=== PATIENT | female | born 1970 | race Caucasian/White ===

== ENCOUNTER 2016-06-22 00:13 | Inpatient (IN) | payer OTHER ==
[~2016-06-22] VITALS: Ht 160 cm; Wt 62.1 kg
[2016-06-22 00:40] LABS: HEMATOCRIT 41.9 % (37-47); MEAN CELL VOLUME 92.1 fL (80-100); MEAN CORPUSCULAR HEMOGLOBIN 32.3 pg (25-34); MEAN CORPUSCULAR HGB CONC 35.1 g/dl (32-36); MEAN PLATELET VOLUME 9.4 fL (7.4-10.4); PLATELET COUNT 234 K/uL (130-400); RED BLOOD COUNT 4.55 M/uL (4.2-5.4); WHITE BLOOD COUNT 8.03 K/uL (4.8-10.8)
--- NOTE | 2016-06-22 00:41 | EMERGENCY ROOM VISIT NOTE ---
History Report prepared by Bari: Nasim Cabezas Under the Supervision of: Dr. Elvira Hinton D.O. First contact with patient: 00:20 Chief Complaint: OVERDOSE (INTENTIONAL) Stated Complaint: OVERDOSED ON MEDICATION History of Present Illness The patient is a 45 year old female who presents to the Emergency Room due to an intentional overdose that occurred a couple of hours ago. This history is presented partially by the patient, but she is showing moderate signs of overdose. The rest of the information is presented by the patient's friend. This HPI is limited due to overdose. The patient was at her home today when she decided to take an unknown amount of her medication, Hydroxyzine. She was prescribed this to help her sleep. She then drank six beers. She called her friend to tell her what she did, which the friend responded to by calling EMS. Last week, the patient's son committed suicide by a gun shot wound to the head. She claims that she wants to be with him. She denies any abdominal pain. She has a history of depression and a hysterectomy. She does not have any other known medical issues. Source of History: friend, EMS History Limited By: sedation Onset: [employer] Position: other (global) Symptom Intensity: unknown Quality: other (overdose) Timing: other (persistent) Associated Symptoms: No abdominal pain Review of Systems ROS limited due to overdose. Past Medical & Surgical Medical Problems: (1) Anticholinergic drug overdose (2) Antihistamines overdose (3) Depression (4) Suicidal ideation Family History Unknown due to overdose. Social History Smoking Status: Former Smoker Alcohol Use: occasionally Marital Status: Housing Status: lives with family Occupation Status: unemployed Current/Historical Medications Scheduled Docusate Sodium (Colace), 1 CAP PO BID Escitalopram (Lexapro), 10 MG PO DAILY Hydroxyzine Hcl (Atarax), 50 MG PO HS Multivitamin (Multivitamin), 1 TAB PO DAILY Nicotine (Nicotine), 1 PATCH TOP DAILY Polyethylene Glycol 3350 (Miralax), 17 GM PO DAILY Valacyclovir (Valtrex), 500 MG PO DAILY Scheduled PRN Lorazepam (Ativan), 0.5 MG PO Q8 PRN for Anxiety Allergies Coded Allergies: No Known Allergies (Unverified , 06/22/16) Physical Exam Vital Signs Date Time Temp Pulse Resp B/P Pulse Ox O2 Delivery O2 Flow Rate FiO2 06/22/16 00:45 100 17 133/83 100 Room Air 06/22/16 00:33 96 06/22/16 00:15 36.9 90 16 108/74 97 Room Air Physical Exam HEENT: Head - normocephalic and atraumatic Pupils are equal, round, 3 mms, and sluggishly reactive to light. Extraocular eye muscles are intact, and sclera are anicteric. Nose - moist nasal mucosa without discharge. Mouth - moist buccal mucosa. Oropharynx is nonerythematous and there is no tonsillar exudate or edema noted. Neck: Supple; no JVD, nuchal rigidity, cervical lymphadenopathy. Heart: Tachycardic with normal rhythm. There is a normal S1 and S2 with no murmurs, clicks, or gallops appreciated. Lungs: Clear to auscultation bilaterally with no wheezes, rales, or rhonchi. Abdomen: Soft, completely nontender, nondistended, with good bowel sounds. There are no palpable pulsatile masses or hepatosplenomegaly. There is no guarding, rigidity, or rebound noted. Extremities: No evidence of cyanosis, clubbing, or edema. There are easily palpable peripheral pulses. Skin: warm and dry with good turgor and no rashes. Neuro: The patient is quite somnolent on exam. She could only occasionally answer questions. Medical Decision & Procedures Laboratory Results 06/22/16 00:27 06/22/16 00:27 Test 06/22/16 00:27 06/22/16 00:30 06/22/16 01:55 Red Blood Count 4.55 M/uL (4.2-5.4) Mean Corpuscular Volume 92.1 fL (80-100) Mean Corpuscular Hemoglobin 32.3 pg (25-34) Mean Corpuscular Hemoglobin Concent 35.1 g/dl (32-36) RDW Standard Deviation 41.8 fL (36.4-46.3) RDW Coefficient of Variation 12.4 % (11.5-14.5) Mean Platelet Volume 9.4 fL (7.4-10.4) Anion Gap 15.0 mmol/L (3-11) Est Creatinine Clear Calc Drug Dose 79.9 ml/min Estimated GFR () 115.6 Estimated GFR (Non- 99.7 BUN/Creatinine Ratio 9.8 (10-20) Calcium Level 8.7 mg/dl (8.5-10.1) Magnesium Level 2.3 mg/dl (1.8-2.4) Total Bilirubin 0.3 mg/dl (0.2-1) Direct Bilirubin < 0.1 mg/dl (0-0.2) Aspartate Amino Transf (AST/SGOT) 28 U/L (15-37) Alanine Aminotransferase (ALT/SGPT) 52 U/L (12-78) Alkaline Phosphatase 54 U/L (45-117) Total Creatine Kinase 76 U/L (26-192) Creatine Kinase MB 0.9 ng/ml (0.5-3.6) Creatine Kinase MB Ratio 1.2 (0-3.0) Troponin I < 0.015 ng/ml (0-0.045) Total Protein 7.6 gm/dl (6.4-8.2) Albumin 4.3 gm/dl (3.4-5.0) Thyroid Stimulating Hormone (TSH) 1.950 uIu/ml (0.300-4.500) Ethyl Alcohol mg/dL 182.0 mg/dl (0-3) Urine Opiates Screen NEG (NEG) Urine Methadone, Qualitative NEG (NEG) Urine Barbiturates NEG (NEG) Urine Phencyclidine (PCP) Level NEG (NEG) Ur Amphetamine/Methamphetamine NEG (NEG) MDMA (Ecstasy) Screen NEG (NEG) Urine Benzodiazepines Screen NEG (NEG) Urine Cocaine Metabolite NEG (NEG) Urine Marijuana (THC) POS (NEG) Salicylates Level < 1.7 mg/dl (2.8-20) Acetaminophen Level < 2 ug/ml (10-30) Date/Time Source Procedure Growth Status 06/22/16 00:00 Nasal MRSA DNA Surveillance Screen - Final Specimen Negative for MRSA by DNA Probe Complete Laboratory results per my review. ECG Indication: toxicologic Rate (beats per minute): 93 Rhythm: normal sinus Findings: T-wave inversion (Inferior), other (QTC 492) Change: Second ECG showed, Sinus tachycardia with a rate of 101, slightly deeper T-wave inversions inferiorly, QTC remains normal, QRS duration is normal as well. ED Course 0020: Past medical records reviewed. The patient was evaluated in room B12. A complete history and physical exam was performed. The patient was observing the monitor car operator and pulse oximeter. An IV lock was initiated and labs are drones above. 0030: The charge nurse is contacting poison control. The patient had an EKG. 0056: The patient is asleep but easily arousable to verbal stimuli. She is hemodynamically stable. 0107: The patient's friend is currently filling out a 302 form. At this time, the patient is more awake. I asked her how many pills she took, and she said "a lot." I then asked what she thought would happen if she took that many, and she said "I thought I would ." 0145: I reviewed the recommendations from poison control. I repeated the twelve -lead EKG. There is no significant change or lengthening of the Q-T complex or QRS complex. 0148: I went over the results and the recommendations with the friend and the patient. I spoke with Dr. Gonzalez of the [facility]. The patient will be evaluated for further management and care. 0219: The patient is hemodynamically stable. She is not in respiratory distress. Medical Decision The patient is a 45 year old female who presents to the ED with an overdose. Differential diagnosis includes intentional drug overdose, suicide attempt, Laboratory results showed: WBC count normal, stable H&H, glucose 114, normal renal function and TSH, alcohol 182, toxicology screen positive for marijuana, Tylenol and Aspirin levels negative. The patient took an intentional overdose of alcohol and Vistaril in an attempt to kill herself. She has become significantly depressed as a result of her son shooting himself in the head. Most of the history was obtained from the patient's friend who is at the bedside. She does state that the patient drinks quite a bit of alcohol but drank some tonight and also took a moderate amount of Vistaril. The patient was somnolent on presentation. She required medical admission so that she could be cleared before psychiatric evaluation. Consults Time Called: 144 Consulting Physician: Dr. Gonzalez - [facility] Returned Call: 014 He will be evaluating the patient for further management. Impression Primary Impression: Suicide attempt by drug ingestion Critical Care I have personally spent greater than 30 minutes of critical care time in the direct management of this patient. This includes bedside care, interpretation of diagnostic studies, and testing, discussion with consultants, patient, and family members, and other required patient management activities. This 30 minutes is in excess of all separately billable procedures. Scribe Attestation The scribe's documentation has been prepared under my direction and personally reviewed by me in its entirety. I confirm that the note above accurately reflects all work, treatment, procedures, and medical decision making performed by me. Departure Information Dispostion Being Evaluated By Hospitalist Referrals Shannon Gilliam DO (PCP) Patient Instructions My [facility]
[2016-06-22 00:59] LABS: ALT/SGPT 52 U/L (12-78); AST/SGOT 28 U/L (15-37); BLOOD UREA NITROGEN 7 mg/dl (7-18); BUN/CREATININE RATIO 9.8 (10-20); CALCIUM 8.7 mg/dl (8.5-10.1); CARBON DIOXIDE 22 mmol/L (21-32); CHLORIDE 109 mmol/L (98-107); CREATININE 0.72 mg/dl (0.60-1.20); GLUCOSE 114 mg/dl (70-99); POTASSIUM 3.6 mmol/L (3.5-5.1); SODIUM 146 mmol/L (136-145)
[2016-06-22 01:05] LABS: BENZODIAZEPINE, URINE NEG (NEG); COCAINE,URINE NEG (NEG); PHENCYCLIDINE, URINE NEG (NEG)
[2016-06-22 01:10] LABS: ALKALINE PHOSPHATASE 54 U/L (45-117)
[2016-06-22] MEDS ORDERED: POLY335019 PO (01:16)
[2016-06-22] MEDS ORDERED: MULT-506 PO (01:16)
[2016-06-22] MEDS ORDERED: HYDR-3126 PO (01:16)
[2016-06-22] MEDS ORDERED: DOCU-94 PO (01:16)
[2016-06-22] MEDS ORDERED: LORA-741 PO (01:16)
[2016-06-22] MEDS ORDERED: ESCI10TA17 PO (01:16)
[2016-06-22] MEDS ORDERED: VALA500T60 PO (01:17)
[2016-06-22] MEDS ORDERED: NICO14DI9 TOP (01:17)
[2016-06-22 02:18] LABS: CKMB/CK RATIO 1.2 (0-3.0)
[2016-06-22 02:26] LABS: ACETAMINOPHEN < 2 ug/ml (10-30)
[2016-06-22] MEDS ORDERED: ACETAMINOPHEN 325 MG TAB PO PRN (02:45)
[2016-06-22 04:08] LABS: MAGNESIUM 2.3 mg/dl (1.8-2.4)
--- NOTE | 2016-06-22 04:29 | History and Physical ---
History & Physical Date & Time of Service: Jun 22, 2016 at 03:58 Chief Complaint: Overdosed On Medication Primary Care Physician: Shannon Gilliam DO History of Present Illness Source: patient 45 y/o F w/Hx depression. She is grieving the recent of her son who committed suicide by gunshot. She drank 6 beers this evening and then ingested approximately 15 tablets of Hydroxyzine in an apparent attempt to commit suicide. After ingestion she phoned a friend who subsequently alerted EMS. She was somnolent on arrival to the ER but has since improved and is awake and oriented on admission. She denies CP, SOB, BRADLEY, N/V or fevers. Past Medical/Surgical History Medical Problems: (1) Depression Status: Chronic Family History Noncontributory Social History Smoking Status: Former Smoker Marital Status: Occupational Status: unemployed Allergies Coded Allergies: No Known Allergies (Unverified , 06/22/16) Home Medications Scheduled Docusate Sodium (Colace), 1 CAP PO BID Escitalopram (Lexapro), 10 MG PO DAILY Hydroxyzine Hcl (Atarax), 50 MG PO HS Multivitamin (Multivitamin), 1 TAB PO DAILY Nicotine (Nicotine), 1 PATCH TOP DAILY Polyethylene Glycol 3350 (Miralax), 17 GM PO DAILY Valacyclovir (Valtrex), 500 MG PO DAILY Scheduled PRN Lorazepam (Ativan), 0.5 MG PO Q8 PRN for Anxiety Review of Systems Constitutional: No chills, No fever, No sweats Eyes: No worsening of vision ENT: No hearing loss, No nasal symptoms, No unusual epistaxis Respiratory: No cough, No sputum, No wheezing Cardiovascular: No PND, No chest pain, No orthopnea Abdomen: No nausea, No pain, No vomiting Musculoskeletal: No joint pain Genitourinary - Female: No dysuria, No urinary frequency, No urinary urgency Neurologic: No memory loss, No paralysis Psychiatric: + depression symptoms Endocrine: No fatigue Hematologic / Lymphatic: No abnormal bleeding/bruising Integumentary: No rash Physical Exam Vital Signs Date Time Temp Pulse Resp B/P Pulse Ox O2 Delivery O2 Flow Rate FiO2 06/22/16 03:00 106 20 110/64 97 Room Air 06/22/16 00:45 100 17 133/83 100 Room Air 06/22/16 00:33 96 06/22/16 00:15 36.9 90 16 108/74 97 Room Air General Appearance: WD/WN, no apparent distress Head: normocephalic Eyes: normal inspection, PERRL, EOMI ENT: normal ENT inspection, pharynx normal Neck: supple, no JVD Respiratory/Chest: chest non-tender, lungs clear, normal breath sounds, no respiratory distress, no accessory muscle use Cardiovascular: regular rate, rhythm, normal peripheral pulses Abdomen/GI: normal bowel sounds, non tender, soft Back: normal inspection, no CVA tenderness, no muscle spasm, normal range of motion Extremities/Musculoskelatal: normal inspection, no calf tenderness, normal capillary refill, no pedal edema, normal range of motion Neurologic/Psych: tufting machine operator II-XII nml as tested, no motor/sensory deficits, alert, normal mood/affect, normal reflexes, oriented x 3 Skin: normal color, warm/dry, no rash Diagnostics Laboratory Results Results Past 24 Hours Test 06/22/16 00:27 06/22/16 00:30 06/22/16 01:55 Range/Units White Blood Count 8.03 4.8-10.8 K/uL Red Blood Count 4.55 4.2-5.4 M/uL Hemoglobin 14.7 12.0-16.0 g/dL Hematocrit 41.9 37-47 % Mean Corpuscular Volume 92.1 80-100 fL Mean Corpuscular Hemoglobin 32.3 25-34 pg Mean Corpuscular Hemoglobin Concent 35.1 32-36 g/dl RDW Standard Deviation 41.8 36.4-46.3 fL RDW Coefficient of Variation 12.4 11.5-14.5 % Platelet Count 234 130-400 K/uL Mean Platelet Volume 9.4 7.4-10.4 fL Sodium Level 146 136-145 mmol/L Potassium Level 3.6 3.5-5.1 mmol/L Chloride Level 109 98-107 mmol/L Carbon Dioxide Level 22 21-32 mmol/L Anion Gap 15.0 3-11 mmol/L Blood Urea Nitrogen 7 7-18 mg/dl Creatinine 0.72 0.60-1.20 mg/dl Est Creatinine Clear Calc Drug Dose 79.9 ml/min Estimated GFR () 115.6 Estimated GFR (Non- 99.7 BUN/Creatinine Ratio 9.8 10-20 Random Glucose 114 70-99 mg/dl Calcium Level 8.7 8.5-10.1 mg/dl Total Bilirubin 0.3 0.2-1 mg/dl Direct Bilirubin < 0.1 0-0.2 mg/dl Aspartate Amino Transf (AST/SGOT) 28 15-37 U/L Alanine Aminotransferase (ALT/SGPT) 52 12-78 U/L Alkaline Phosphatase 54 45-117 U/L Total Creatine Kinase 76 26-192 U/L Creatine Kinase MB 0.9 0.5-3.6 ng/ml Creatine Kinase MB Ratio 1.2 0-3.0 Troponin I < 0.015 0-0.045 ng/ml Total Protein 7.6 6.4-8.2 gm/dl Albumin 4.3 3.4-5.0 gm/dl Thyroid Stimulating Hormone (TSH) 1.950 0.300-4.500 uIu/ml Ethyl Alcohol mg/dL 182.0 0-3 mg/dl Urine Opiates Screen NEG NEG Urine Methadone, Qualitative NEG NEG Urine Barbiturates NEG NEG Urine Phencyclidine (PCP) Level NEG NEG Ur Amphetamine/Methamphetamine NEG NEG MDMA (Ecstasy) Screen NEG NEG Urine Benzodiazepines Screen NEG NEG Urine Cocaine Metabolite NEG NEG Urine Marijuana (THC) POS NEG Salicylates Level < 1.7 2.8-20 mg/dl Acetaminophen Level < 2 10-30 ug/ml Impression Assessment and Plan 45 y/o F w/Hx depression. She is grieving the recent of her son who committed suicide by gunshot. She drank 6 beers this evening and then ingested approximately 15 tablets of Hydroxyzine in an apparent attempt to commit suicide. After ingestion she phoned a friend who subsequently alerted EMS. She was somnolent on arrival to the ER but has since improved and is awake and oriented on admission. Intentional Hydroxyzine OD - Pt will be monitored on telemetry - one to one observation requested - mental health will be consulted. No specific treatment is recommended regarding Hydroxizine ingestion. There is risk of QT prolongation and resulting Torsades so we will obtain serial EKGs and trend a BMP an Mg. We will avoid any prolonging agents and have held the majority of her meds for at least 24 hours. Lovenox prophylaxis - full code Total time for this admit including review of records, labs, EKG - discussion with pt and ER attending - 35 min Level of Care Telemetry Resuscitation Status FULL RESUSCITATION VTE Prophylaxis VTE Risk Assessment Done? Y/N: Yes Risk Level: Low Given or contraindicated: Unfractionated heparin SQ
[2016-06-22 04:42] VITALS: BP 129/84; PULSE 95; TEMP 36.8; O2SAT 97; Ht 160 cm; Wt 62.1 kg
[2016-06-22] MEDS: D5W AND 1/2NSS + 20MEQ KCL 1,000 ML IV SCH ×2 (05:11→09:22)
[2016-06-22 07:30] VITALS: BP 132/82; PULSE 101; TEMP 36.9; O2SAT 97
[2016-06-22 07:57] LABS: INR 1.1 (0.9-1.1); PROTHROMBIN TIME (PATIENT) 12.3 SECONDS (9.0-12.0)
[2016-06-22 08:25] LABS: BUN/CREATININE RATIO 10.9 (10-20); CALCIUM 8.3 mg/dl (8.5-10.1); CREATININE 0.67 mg/dl (0.60-1.20)
[2016-06-22] MEDS ORDERED: ENOXAPARIN 40 MG/0.4 ML SYR SC SCH (09:00)
[2016-06-22 11:20] VITALS: BP 133/86; PULSE 104; TEMP 36.9; O2SAT 97
[2016-06-22 15:24] VITALS: BP 141/86; PULSE 99; TEMP 36.7; O2SAT 97
--- NOTE | 2016-06-22 15:29 | Psychiatric Progress Notes ---
Psychiatric Progress Note Date of Service Jun 22, 2016. Notes Patient seen and assessed. She is medically cleared and being admitted to the Behavioral Health Unit for suicide attempt by overdose. Please see admission note for details.
--- NOTE | 2016-06-22 15:33 | Discharge Instructions ---
Discharge Instructions Admission Reason for Admission: Antihistamines Od, Suicide Attempt By Drug Ingesti Discharge Discharge Diagnosis / Problem: Intentional overdose Discharge Goals Goal(s): Decrease discomfort, Improve function, Increase independence, Improve disease control, Diagnostic testing, Therapeutic intervention Activity Recommendations Activity Limitations: resume your previous activity Shower/Bathe: no limitations . Instructions / Follow-Up Instructions / Follow-Up Patient to be discharged to mental health unit Hold off on starting medications until 06/23/16 Also recommend repeat EKG in AM to monitor QT interval Current Hospital Diet Patient's current hospital diet: Regular Diet Discharge Diet Recommended Diet: Regular Diet Pending Studies Studies pending at discharge: no Medical Emergencies . Who to Call and When: Medical Emergencies: If at any time you feel your situation is an emergency, please call 911 immediately. . Non-Emergent Contact Non-Emergency issues call your: Primary Care Provider Call Non-Emergent contact if: your pain is worsening . . "Provider Documentation" section prepared by Christiano Irizarry. VTE Core Measure Inpt VTE Proph given/why not?: Unfractionated heparin SQ
--- NOTE | 2016-06-22 15:39 | Discharge Summary ---
Discharge Summary Admission Date: Jun 22, 2016 at 02:56 Discharge Date: Jun 22, 2016 Discharge Disposition: Acute care mental health Principal Diagnosis: Intentional overdose Consultations: Psychiatry Medication Reconciliation Discontinued Medications: Docusate Sodium (Colace) 100 Mg Cap 1 CAP PO BID for 30 Days, #60 CAP Escitalopram (Lexapro) 10 Mg Tab 10 MG PO DAILY, TAB Hydroxyzine Hcl (Atarax) 50 Mg Tab 50 MG PO HS, TAB Lorazepam (Ativan) 0.5 Mg Tab 0.5 MG PO Q8 PRN for Anxiety, TAB Multivitamin (Multivitamin) Tab 1 TAB PO DAILY, TAB Nicotine (Nicotine) 14 Mg/24 Hr Dis 1 PATCH TOP DAILY for 28 Days, #28 PATCH Polyethylene Glycol 3350 (Miralax) 1 Pow Pow 17 GM PO DAILY, #255 GM Valacyclovir (Valtrex) 500 Mg Tab 500 MG PO DAILY, TAB Discharge Exam Review of Systems: Constitutional: No chills, No fever Respiratory: No cough, No dyspnea on exertion, No shortness of breath, No sputum, No wheezing Cardiovascular: No chest pain, No orthopnea Abdomen: No diarrhea, No nausea, No pain, No vomiting Musculoskeletal: No joint pain, No muscle pain Genitourinary - Female: No dysuria, No urinary frequency, No urinary urgency Neurologic: No numbness/tingling, No paralysis, No weakness Physical Exam: General Appearance: WD/WN, no apparent distress Neck: supple, no adenopathy Respiratory/Chest: chest non-tender, lungs clear, normal breath sounds Cardiovascular: regular rate, rhythm, no edema, no JVD Abdomen / GI: non tender, soft Neurologic/Psychiatric: alert, oriented x 3 Hospital Course 45 y/o F w/Hx depression. She is grieving the recent of her son who committed suicide by gunshot. She drank 6 beers this evening and then ingested approximately 15 tablets of Hydroxyzine in an apparent attempt to commit suicide. After ingestion she phoned a friend who subsequently alerted EMS. She was somnolent on arrival to the ER but has since improved and is awake and oriented on admission. Further improvement in ICU, diet advanced, asymptomatic, pt stable and transferred to mental health unit for further care Intentional Hydroxyzine OD - Pt wasl be monitored on telemetry - one to one observation requested. Mental health consulted. No specific treatment is recommended regarding Hydroxizine ingestion. There is risk of QT prolongation and resulting Torsades so we will obtain serial EKGs. Lovenox prophylaxis - full code Total Time Spent: Greater than 30 minutes This includes examination of the patient, discharge planning, medication reconciliation, and communication with other providers. Discharge Instructions Please refer to the electronic Patient Visit Report (Discharge Instructions) for additional information.
[2016-06-22 15:40] VITALS: BP 141/86; PULSE 99; TEMP 36.7; O2SAT 97
--- NOTE | 2016-06-22 16:01 | Psychiatric History & Physical ---
History Identifying Data Mirna Lo is a 45-year-old female who currently lives in [] [alone] with []. Mirna Lo was admitted on a [201 voluntary] [302 involuntary] commitment. Patient is admitted from [home] [transfer from the medical floor]. The patient was brought to the ED by the [police] [family] [ambulance] [self transport]. Information provided by the patient is considered to be [reliable] [unreliable]. Chief Complaint "My son shot himself a week ago". History of Present Illness According to records, the patient presented to the emergency room via EMS last night after attempting suicide by overdose on hydroxyzine. She had been drinking, approximately 6 beers, and her alcohol level was 182. She told the emergency room physician that she took the overdose with intent to , and that she wanted to be with her son, who committed suicide a week ago. She called her friend after taking the overdose, who called EMS. Her friend also completed a 302 petitioning statement. In the emergency room, her drug screen was positive for cannabinoids, she was somnolent, and EKG showed sinus tachycardia. She is getting serial EKGs due to the risk of arrhythmias with her overdose. The patient has been admitted to the ICU, and was seen in her room with her at the bedside. She states that she has been depressed with frequent tearfulness for the past week since her son committed suicide by shooting himself in the head on June 14. She says that her son had bipolar disorder, PTSD, anxiety, and addictions issues, and was frequently getting into trouble, saying "he was a handful." His girlfriend called her and notified her of his suicide shortly after it happened. She says "I been a bowling mess for the past week, but yesterday spent some time alone in the bedroom, just felt so alone, don't know what happened. Yesterday seemed odd. I just snapped, was throwing things, took the pills, but I just go to sleep. Then he wasn't sure he wanted to , so I called my friend." The patient's states that he was home at the time, but was watching the [place] [place], and that the patient seemed upset and "didn't want anything to do with me." She states she now regrets her suicide attempt, and says she is not sure what happened repeatedly saying "I just snapped." She says that she was fearful that she would never be able to enjoy life again in the wake of her son's . She states that her mood was good and stable prior to last Wednesday, but since then, she's had decreased appetite, daily crying, poor sleep, and is not sure if she's been taking her regularly scheduled medicine for the past week. Her PCP gave her a prescription for Ativan 0.5 mg every 8 hours when necessary ( per the [facility], filled #30 tabs on 06/15/16) last Wednesday, but she denies that she overdosed on this, stating she instead overdosed on an old prescription of hydroxyzine which was prescribed for sleep and anxiety. She is not sure exactly how many tablets she took, but says it was "a lot." At the time, she was expecting to follow sleep and not wake up, but shortly after taking the medication, regretted it so called her friend. She states that she is glad her attempt was unsuccessful, and wants to live, recognizing she has good people in her life. She does report chronic anxiety, which she states is episodic and secondary to situational stressors, such as difficult times with her son (such as when he got arrested), her past divorces, and moving. She denies that she was having problems with anxiety prior to her son's one week ago. She denies symptoms consistent with julia or psychosis. Past Psychiatric History Current OP Treatment: no current treatment Prior OP Treatment: therapist (briefly saw a therapist, Maggie Larkin, for a few visits in the past year, but stopped as she felt better.) Prior Psych Hospitalizations: other (none) (1) Depression (2) Suicide attempt by drug ingestion Treated for depression by her PCP. Has never seen a psychiatrist, and was only in therapy briefly, with no outpatient providers currently. No history of suicide attempts, self-injurious behavior, or violence to others. No history of psychiatric hospitalizations. There are guns in the home. Previous Medication Trials: citalopram, alprazolam. Past Medical/Surgical History History of Obesity: No History of HTN: No History of Diabetes: No History of Heart Disease: No History of Dyslipidemia: No History of Concussion/Seizure: No Problem List: Allergies Allergies: Coded Allergies: No Known Allergies (Unverified , 06/22/16) Family History Anxiety disorder SON Drug addiction SON FATHER FH: bipolar disorder SON BROTHER FH: suicide SON PTSD SON History of Obesity: No History of HTN: No History of Diabetes: No History of Heart Disease: No History of Dyslipidemia: No Alcohol Use Alcohol Use In Past 12 Months: Yes Drinks 4 nights a week, 2-10 beers. Last drink was last night. She admits to problems stemming from her drinking, including her suicide attempt last night and has started fights with her when intoxicated. She denies a history of alcohol withdrawal, substance abuse treatment, legal problems stemming from her drinking, inability to follow-up on obligations due to drinking, or others telling her she should cut back on alcohol. She does think that she drinks too much, and that she should cut back. Substance History Substance Use Past 12 Months: Hx of Inhalent Use: No Hx of Organic Substance Use: No Hx of Illegal/Street Drug Use: Yes Hx of Over the Counter Med Use: No Hx of Prescription Med Use: Yes (Overdosed on hydroxyzine 06/21/16 in suicide attempt) Smokes marijuana once a week, which helps with sleep. She denies any concerns about her marijuana use. She denies use of other illicit drugs, abuse of prescription medications, [id number] medications, organics, inhalants, or synthetics. She is a former smoker. Personal History Born in: [place], [place] Education: graduated from high school (attended [employer] school, has some business school, and recently registered for online [employer] training (was scheduled to start last Wednesday, but did not due to son's ).) Work History: unemployed for 4 years. 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 Spiritual Affiliation: Confucianist Legal History: none Abuse History: none Psychological Trauma History: Other (son's suicide 1 week ago) Additional Comments: Currently lives in [place] with her . Reports good support from her , her friend Shelley, and her 's family. Review of Systems 10 systems reviewed; all negative except as stated above. Examination Physical Examination The physical exams performed in the emergency room and in the ICU were reviewed and accepted for the purposes of this admission. Vital Signs Vital Signs Past 12 Hours Date Time Temp Pulse Resp B/P Pulse Ox O2 Delivery O2 Flow Rate FiO2 06/22/16 11:20 Room Air 06/22/16 11:20 36.9 104 16 133/86 97 Room Air 06/22/16 07:30 Room Air 06/22/16 07:30 36.9 101 16 132/82 97 Room Air 06/22/16 04:42 36.8 95 16 129/84 97 Room Air 06/22/16 04:10 97 20 101/65 96 Laboratory Results Last 24 Hours Test 06/22/16 00:27 06/22/16 00:30 06/22/16 01:55 06/22/16 07:26 White Blood Count 8.03 K/uL Red Blood Count 4.55 M/uL Hemoglobin 14.7 g/dL Hematocrit 41.9 % Mean Corpuscular Volume 92.1 fL Mean Corpuscular Hemoglobin 32.3 pg Mean Corpuscular Hemoglobin Concent 35.1 g/dl RDW Standard Deviation 41.8 fL RDW Coefficient of Variation 12.4 % Platelet Count 234 K/uL Mean Platelet Volume 9.4 fL Sodium Level 146 mmol/L 147 mmol/L Potassium Level 3.6 mmol/L 4.0 mmol/L Chloride Level 109 mmol/L 114 mmol/L Carbon Dioxide Level 22 mmol/L 21 mmol/L Anion Gap 15.0 mmol/L 12.0 mmol/L Blood Urea Nitrogen 7 mg/dl 7 mg/dl Creatinine 0.72 mg/dl 0.67 mg/dl Est Creatinine Clear Calc Drug Dose 79.9 ml/min 85.8 ml/min Estimated GFR () 115.6 121.3 Estimated GFR (Non- 99.7 104.7 BUN/Creatinine Ratio 9.8 10.9 Random Glucose 114 mg/dl 105 mg/dl Calcium Level 8.7 mg/dl 8.3 mg/dl Magnesium Level 2.3 mg/dl Total Bilirubin 0.3 mg/dl Direct Bilirubin < 0.1 mg/dl Aspartate Amino Transf (AST/SGOT) 28 U/L Alanine Aminotransferase (ALT/SGPT) 52 U/L Alkaline Phosphatase 54 U/L Total Creatine Kinase 76 U/L Creatine Kinase MB 0.9 ng/ml Creatine Kinase MB Ratio 1.2 Troponin I < 0.015 ng/ml Total Protein 7.6 gm/dl Albumin 4.3 gm/dl Thyroid Stimulating Hormone (TSH) 1.950 uIu/ml Ethyl Alcohol mg/dL 182.0 mg/dl Urine Opiates Screen NEG Urine Methadone, Qualitative NEG Urine Barbiturates NEG Urine Phencyclidine (PCP) Level NEG Ur Amphetamine/Methamphetamine NEG MDMA (Ecstasy) Screen NEG Urine Benzodiazepines Screen NEG Urine Cocaine Metabolite NEG Urine Marijuana (THC) POS Salicylates Level < 1.7 mg/dl Acetaminophen Level < 2 ug/ml Prothrombin Time 12.3 SECONDS Prothromb Time International Ratio 1.1 Mental Examination During interview pt is: alert and oriented, cooperative Appearance: appropriately dressed (in a hospital gown), appropriately groomed, appeared stated age Eye contact is: good Motor behavior is: no abnormal motor movements Speech: normal in rate, rhythm & volume Affect: blunted Mood is: depressed Thought process: goal directed Thought content: reality based without delusions Suicidal thought are: present (overdosed on hydroxyzine in a suicide attempt last night. Admits she intended to .) Homicidal thoughts are: denied Hallucinations: denies auditory, denies visual Cognition: memory grossly intact, attention grossly intact, language grossly intact Intelligence estimated to be: consistent with level of education Insight: fair Judgement: fair Impression / Recommendations Impression 45-year-old white female with a history of depression and alcohol abuse who presents after a suicide attempt by overdose on hydroxyzine while intoxicated with a blood alcohol level of 182. She reports her mood and anxiety were fairly well-controlled until one week ago when her son by suicide. Recommend inpatient psychiatric treatment to address her depression and suicidality. 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, they have numerous firearms in the home, and both enjoy hunting and target shooting) Health problems: No Mental Health Diagnoses: Yes Substance use disorders: Yes Previous attempt: No Family history of suicide: Yes Previous psychiatric stay: No Hopelessness: No Smoker: No Protective Factors Assessment Scientologist beliefs: Yes : Yes Responsible for young children: No Employed: No Stable relationships: Yes Supportive family: Yes Good rapport with provider: No Recommendations (1) Suicide attempt by drug ingestion Safety checks Work on discharge safety plan, including a plan to limit her access to firearms and medications, and decreased alcohol intake Attend unit groups and programming and work on healthy coping skills (2) Depression Resume home dose of escitalopram, and consider increasing the dose. We'll continue home dose of lorazepam 0.5 mg every 8 hours as needed for sleep or anxiety for short term use Will need referral for outpatient psychiatry and therapy [facility] with PCP, Dr. Shannon Gilliam DO. CPT Code Initial Hospital Care: [id number]
[2016-06-22] MEDS ORDERED: LXP10 PO (16:37)
[2016-06-22] MEDS ORDERED: MULTTAB58 PO (17:36)
[2016-06-23] MEDS ORDERED: ATV5 PO (10:48)
[2016-06-23] MEDS ORDERED: ATR25 PO (10:48)
== END 2016-06-22 16:17 | DRG 918 ==
LOC: ENRESERVTM → ENRESERVDT → C.EDB 00:14 → C.MSICU 02:56
PROVIDERS: ADMIT Internal Medicine; ATTEND Hospitalist
DX: T43.592A Poisoning by other antipsychotics and neuroleptics, intentional self-harm, initial encounter (principal); F32.9 Major depressive disorder, single episode, unspecified; Z87.891 Personal history of nicotine dependence; F10.10 Alcohol abuse, uncomplicated; Z79.899 Other long term (current) drug therapy

== ENCOUNTER 2016-06-22 16:15 | Inpatient (IN) | payer OTHER ==
[~2016-06-22] VITALS: Ht 160 cm; Wt 60.7 kg
[~2016-06-22 16:15] MED LIST: DOCU-94 PO; ESCI10TA17 PO; HYDR-3126 PO; LORA-741 PO; MULT-506 PO; NICO14DI9 TOP; POLY335019 PO; VALA500T60 PO
[2016-06-22] MEDS ORDERED: MAGNESIUM HYDROXIDE SUSP 30 ML UDC PO PRN (16:30)
[2016-06-22] MEDS ORDERED: ALUMINUM/MAGNESIUM SUSP 30 ML UDC PO PRN (16:30)
[2016-06-22] MEDS ORDERED: BISMUTH SUBSALICYLATE PER ML OMNICELL CHARGE PO PRN (16:30)
[2016-06-22] MEDS ORDERED: ACETAMINOPHEN 325 MG TAB PO PRN (16:30)
[2016-06-22] MEDS ORDERED: SODIUM CHLORIDE 0.65% NA SOLN 45 ML (OCEAN) PRN (16:30)
--- NOTE | 2016-06-22 16:34 | Psychiatric History & Physical ---
Psychiatric History & Physical Date of Service: Jun 22, 2016. History Identifying Data Mirna Lo is a 45-year-old female who lives in [place] with her , has a history of depression, and presented to the ER via EMS after she overdosed on hydroxyzine while intoxicated in a suicide attempt. She was seen in consultation while in the ICU earlier today, and was then medically cleared and admitted voluntarily to the [facility]. Chief Complaint "My son shot himself a week ago". History of Present Illness According to records, the patient presented to the emergency room via EMS last night after attempting suicide by overdose on hydroxyzine. She had been drinking, approximately 6 beers, and her alcohol level was 182. She told the emergency room physician that she took the overdose with intent to , and that she wanted to be with her son, who committed suicide a week ago. She called her friend after taking the overdose, who called EMS. Her friend also completed a 302 petitioning statement. In the emergency room, her drug screen was positive for cannabinoids, she was somnolent, and EKG showed sinus tachycardia. She is getting serial EKGs due to the risk of arrhythmias with her overdose. The patient has been admitted to the ICU, and was seen in her room with her at the bedside. She states that she has been depressed with frequent tearfulness for the past week since her son committed suicide by shooting himself in the head on June 14. She says that her son had bipolar disorder, PTSD, anxiety, and addictions issues, and was frequently getting into trouble, saying "he was a handful." His girlfriend called her and notified her of his suicide shortly after it happened. She says "I been a bowling mess for the past week, but yesterday spent some time alone in the bedroom, just felt so alone, don't know what happened. Yesterday seemed odd. I just snapped, was throwing things, took the pills, but I just go to sleep. Then he wasn't sure he wanted to , so I called my friend." The patient's states that he was home at the time, but was watching the [place] Bowl, and that the patient seemed upset and "didn't want anything to do with me." She states she now regrets her suicide attempt, and says she is not sure what happened repeatedly saying "I just snapped." She says that she was fearful that she would never be able to enjoy life again in the wake of her son's . She states that her mood was good and stable prior to last Wednesday, but since then, she's had decreased appetite, daily crying, poor sleep, and is not sure if she's been taking her regularly scheduled medicine for the past week. Her PCP gave her a prescription for Ativan 0.5 mg every 8 hours when necessary ( per the [facility], filled #30 tabs on 06/15/16) last Wednesday, but she denies that she overdosed on this, stating she instead overdosed on an old prescription of hydroxyzine which was prescribed for sleep and anxiety. She is not sure exactly how many tablets she took, but says it was "a lot." At the time, she was expecting to follow sleep and not wake up, but shortly after taking the medication, regretted it so called her friend. She states that she is glad her attempt was unsuccessful, and wants to live, recognizing she has good people in her life. She does report chronic anxiety, which she states is episodic and secondary to situational stressors, such as difficult times with her son (such as when he got arrested), her past divorces, and moving. She denies that she was having problems with anxiety prior to her son's one week ago. She denies symptoms consistent with julia or psychosis. Past Psychiatric History Current OP Treatment: no current treatment Prior OP Treatment: therapist (briefly saw a therapist, Maggie Larkin, for a few visits in the past year, but stopped as she felt better.) Prior Psych Hospitalizations: other (none) (1) Depression (2) Suicide attempt by drug ingestion Treated for depression by her PCP. Has never seen a psychiatrist, and was only in therapy briefly, with no outpatient providers currently. No history of suicide attempts, self-injurious behavior, or violence to others. No history of psychiatric hospitalizations. There are guns in the home. Previous Medication Trials: citalopram, alprazolam. Past Medical/Surgical History History of Obesity: No History of HTN: No History of Diabetes: No History of Heart Disease: No History of Dyslipidemia: No History of Concussion/Seizure: No Problem List: Allergies Allergies: Coded Allergies: No Known Allergies (Unverified , 06/22/16) Home Medications Scheduled Docusate Sodium (Colace), 1 CAP PO BID Escitalopram (Lexapro), 10 MG PO DAILY Hydroxyzine Hcl (Atarax), 50 MG PO HS Multivitamin (Multivitamin), 1 TAB PO DAILY Nicotine (Nicotine), 1 PATCH TOP DAILY Polyethylene Glycol 3350 (Miralax), 17 GM PO DAILY Valacyclovir (Valtrex), 500 MG PO DAILY Scheduled PRN Lorazepam (Ativan), 0.5 MG PO Q8 PRN for Anxiety Family History Anxiety disorder SON Drug addiction SON FATHER FH: bipolar disorder SON BROTHER FH: suicide SON PTSD SON History of Obesity: No History of HTN: No History of Diabetes: No History of Heart Disease: No History of Dyslipidemia: No Alcohol Use Alcohol Use In Past 12 Months: Yes Drinks 4 nights a week, 2-10 beers. Last drink was last night. She admits to problems stemming from her drinking, including her suicide attempt last night and has started fights with her when intoxicated. She denies a history of alcohol withdrawal, substance abuse treatment, legal problems stemming from her drinking, inability to follow-up on obligations due to drinking, or others telling her she should cut back on alcohol. She does think that she drinks too much, and that she should cut back. Substance History Substance Use Past 12 Months: Hx of Inhalent Use: No Hx of Organic Substance Use: No Hx of Illegal/Street Drug Use: Yes Hx of Over the Counter Med Use: No Hx of Prescription Med Use: Yes (Overdosed on hydroxyzine 06/21/16 in suicide attempt) Smokes marijuana once a week, which helps with sleep. She denies any concerns about her marijuana use. She denies use of other illicit drugs, abuse of prescription medications, [id number] medications, organics, inhalants, or synthetics. She is a former smoker. Personal History Born in: [place] Education: graduated from high school (attended [employer] school, has some business school, and recently registered for online [employer] training (was scheduled to start last Wednesday, but did not due to son's ).) Work History: unemployed for 4 years. 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 Spiritual Affiliation: Judaism Legal History: none Abuse History: none Psychological Trauma History: Other (son's suicide 1 week ago) Additional Comments: Currently lives in [place] with her . Reports good support from her , her friend Shelley, and her 's family. Review of Systems 10 systems reviewed; all negative except as stated above. Examination Physical Examination The physical exams performed in the emergency room and in the ICU were reviewed and accepted for the purposes of this admission. Vital Signs Vital Signs Past 12 Hours Date Time Temp Pulse Resp B/P Pulse Ox O2 Delivery O2 Flow Rate FiO2 06/22/16 11:20 Room Air 06/22/16 11:20 36.9 104 16 133/86 97 Room Air 06/22/16 07:30 Room Air 06/22/16 07:30 36.9 101 16 132/82 97 Room Air 06/22/16 04:42 36.8 95 16 129/84 97 Room Air 06/22/16 04:10 97 20 101/65 96 Laboratory Results Last 24 Hours Test 06/22/16 00:27 06/22/16 00:30 06/22/16 01:55 06/22/16 07:26 White Blood Count 8.03 K/uL Red Blood Count 4.55 M/uL Hemoglobin 14.7 g/dL Hematocrit 41.9 % Mean Corpuscular Volume 92.1 fL Mean Corpuscular Hemoglobin 32.3 pg Mean Corpuscular Hemoglobin Concent 35.1 g/dl RDW Standard Deviation 41.8 fL RDW Coefficient of Variation 12.4 % Platelet Count 234 K/uL Mean Platelet Volume 9.4 fL Sodium Level 146 mmol/L 147 mmol/L Potassium Level 3.6 mmol/L 4.0 mmol/L Chloride Level 109 mmol/L 114 mmol/L Carbon Dioxide Level 22 mmol/L 21 mmol/L Anion Gap 15.0 mmol/L 12.0 mmol/L Blood Urea Nitrogen 7 mg/dl 7 mg/dl Creatinine 0.72 mg/dl 0.67 mg/dl Est Creatinine Clear Calc Drug Dose 79.9 ml/min 85.8 ml/min Estimated GFR () 115.6 121.3 Estimated GFR (Non- 99.7 104.7 BUN/Creatinine Ratio 9.8 10.9 Random Glucose 114 mg/dl 105 mg/dl Calcium Level 8.7 mg/dl 8.3 mg/dl Magnesium Level 2.3 mg/dl Total Bilirubin 0.3 mg/dl Direct Bilirubin < 0.1 mg/dl Aspartate Amino Transf (AST/SGOT) 28 U/L Alanine Aminotransferase (ALT/SGPT) 52 U/L Alkaline Phosphatase 54 U/L Total Creatine Kinase 76 U/L Creatine Kinase MB 0.9 ng/ml Creatine Kinase MB Ratio 1.2 Troponin I < 0.015 ng/ml Total Protein 7.6 gm/dl Albumin 4.3 gm/dl Thyroid Stimulating Hormone (TSH) 1.950 uIu/ml Ethyl Alcohol mg/dL 182.0 mg/dl Urine Opiates Screen NEG Urine Methadone, Qualitative NEG Urine Barbiturates NEG Urine Phencyclidine (PCP) Level NEG Ur Amphetamine/Methamphetamine NEG MDMA (Ecstasy) Screen NEG Urine Benzodiazepines Screen NEG Urine Cocaine Metabolite NEG Urine Marijuana (THC) POS Salicylates Level < 1.7 mg/dl Acetaminophen Level < 2 ug/ml Prothrombin Time 12.3 SECONDS Prothromb Time International Ratio 1.1 Mental Examination During interview pt is: alert and oriented, cooperative Appearance: appropriately dressed (in a hospital gown), appropriately groomed, appeared stated age Eye contact is: good Motor behavior is: no abnormal motor movements Speech: normal in rate, rhythm & volume Affect: blunted Mood is: depressed Thought process: goal directed Thought content: reality based without delusions Suicidal thought are: present (overdosed on hydroxyzine in a suicide attempt last night. Admits she intended to .) Homicidal thoughts are: denied Hallucinations: denies auditory, denies visual Cognition: memory grossly intact, attention grossly intact, language grossly intact Intelligence estimated to be: consistent with level of education Insight: fair Judgement: fair Impression / Recommendations Impression 45-year-old white female with a history of depression and alcohol abuse who presents after a suicide attempt by overdose on hydroxyzine while intoxicated with a blood alcohol level of 182. She reports her mood and anxiety were fairly well-controlled until one week ago when her son by suicide. Recommend inpatient psychiatric treatment to address her depression and suicidality. 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, they have numerous firearms in the home, and both enjoy hunting and target shooting) Health problems: No Mental Health Diagnoses: Yes Substance use disorders: Yes Previous attempt: No Family history of suicide: Yes Previous psychiatric stay: No Hopelessness: No Smoker: No Protective Factors Assessment Religion beliefs: Yes : Yes Responsible for young children: No Employed: No Stable relationships: Yes Supportive family: Yes Good rapport with provider: No Recommendations (1) Suicide attempt by drug ingestion Safety checks Work on discharge safety plan, including a plan to limit her access to firearms and medications, and decreased alcohol intake Attend unit groups and programming and work on healthy coping skills (2) Depression Resume home dose of escitalopram, and consider increasing the dose. We'll continue home dose of lorazepam 0.5 mg every 8 hours as needed for sleep or anxiety for short term use Will need referral for outpatient psychiatry and therapy [facility] with PCP, Dr. Shannon Gilliam DO. CPT Code Initial Hospital Care: [id number]
[2016-06-22] MEDS ORDERED: LXP10 PO (16:37)
[2016-06-22 16:54] VITALS: BP 151/96; PULSE 90; TEMP 37; Ht 160 cm; Wt 60.7 kg
[2016-06-22] MEDS ORDERED: MULTTAB58 PO (17:36)
[2016-06-23 06:44] VITALS: BP_SYST 119; BP_SYST 120; BP_DIAS 78; BP_DIAS 89; PULSE 64; PULSE 71; TEMP 36.9
[2016-06-23] MEDS: ESCITALOPRAM OXALATE 10 MG TAB PO SCH (08:58)
--- NOTE | 2016-06-23 10:44 | Psychiatric Progress Notes ---
Progress Note Date of Service Jun 23, 2016. Interval History Mirna Lo is a 45-year-old female who lives in [place] with her , has a history of depression, and presented to the ER via EMS after she overdosed on hydroxyzine while intoxicated in a suicide attempt. She was seen in consultation while in the ICU, and was then medically cleared and admitted voluntarily to the [facility] on 06/22/16. Chief Complaint "I don't know how to explain it". Subjective Patient was seen & assessed interval progress reviewed with Treatment Team. Staff report she was cooperative with admission and is going to groups. She processed her suicide attempt with staff, saying she felt guilty for smiling or feeling happy after her son's suicide, and felt it was unfair to her , so decided to overdose. Today she says she feels she is getting a better understanding of what her son went through with his depression by listening to her peers here, saying she didn't understand "how deep it goes, I don't think I' ve ever been that depressed, it's such a struggle." She feels "relieved for myself, because the last week was really overwhelming, but now I feel like I can cope." She remains willing for outpatient therapy, saying "I know it only takes a split second to make that decision" (to commit suicide). She endorses some guilt, says she feels "selfish" because she attempted suicide after "just a week of agonizing pain, and for these people, it's their whole life." She is glad she is alive and says she feels confident that she will never try to hurt herself again, as she has a lot to live for. She talked about her son's suicide , how his girlfriend "went outside just for a split second," and how badly she feels for her. She also talks about being "so worried about everyone else's pain , trying to fix it for them, trying to make it go too fast." She felt like she was "going to have to fake everything the rest of my life, and now I know that' s not true." She describes her thought process and how she thinks it contributed to her suicide attempt. She feels hopeful now, and committed to getting better. Sleep Information Total Hours of Sleep: 7.75 Meal Information Percent of Breakfast Consumed: 100 Percent of Dinner Consumed: 100 Mental Status Exam During interview pt is: alert and oriented, cooperative Eye contact is: good Motor behavior is: steady gait & station, no abnormal motor movements Speech: normal in rate, rhythm & volume Affect: mood congruent, tearful (at times, appropriately) Mood is: other (improved from admission, more hopeful, still with periods of grief/saddness) Thought process: goal directed Thought content: reality based without delusions Suicidal thought are: denied Homicidal thoughts are: denied Hallucinations: denies auditory, denies visual Cognition: memory grossly intact, attention grossly intact, language grossly intact Intelligence estimated to be: average Insight: fair Judgement: fair Medication Trials (1) Past Psych Meds citalopram alprazolam hydroxyzine - overdosed on it in suicide attempt lorazepam - started by PCP after son's as prn Last Edited By: Kierra Nelson on Jun 23, 2016 10:40 Impression 45 y/o MWF with depression and alcohol abuse who attempted suicide by hydroxyzine overdose while intoxicated, one week after son committed suicide. She would benefit from medication adjustment to target mood and anxiety, interventions regarding her alcohol abuse, safety planning including , and referral for outpatient mental health services. Continued Inpatient Care High risk for suicide if discharge prematurely. Plan (1) Depression 2/6 - resume home dose of escitalopram 10mg daily - encourage group participation - refer for outpatient psychiatry and therapy 2/7 - continue escitalopram 10mg and observe response, consider dose increase if depressive or anxiety symptoms continue/worsen (2) Suicide attempt 2/6 - hydroxyzine and lorazepam held on admission to medical floor. - attend groups and work on coping skills and safety plan - family meeting with to work on safety plan - he should lock up all meds and guns in the home, and hold her meds and dispense daily until she has stabilized. (3) Alcohol abuse 2/6 - Abusing alcohol for years. Educated about the risks of ongoing alcohol use , including development of tolerance, addiction, legal consequences, cognitive problems, worsening mood and anxiety, and increased risk of suicide. She agrees it is a problem, and is willing to abstain. If unable to do so on her own, recommend outpatient substance abuse treatment. 2/7 - Avoid controlled substances. Lorazepam discontinued on medical floor. Will get JARAD to coordinate care with PCP, Dr. Shannon Gilliam. Discharge / Aftercare Planning Psychiatrist: Name: alysha Therapist: Name: alysha Religious Studies Professor: Name: alysha Visit Code E&M Code: 25803 Risk Factors Assessment : Yes /single/: No Higher / Fall in social status: No Access to guns: Yes Health problems: No Mental Health Diagnoses: Yes Substance use disorders: Yes Previous attempt: No Previous psychiatric stay: No Hopelessness: No Smoker: No Protective Factors Assessment Sabianist beliefs: Yes : Yes Responsible for young children: No Employed: No Stable relationships: Yes Supportive family: Yes Data Vital Signs Last 24 Hrs: Date Time Temp Pulse Resp B/P Pulse Ox O2 Delivery O2 Flow Rate FiO2 06/23/16 06:44 36.9 64 15 120/78 71 119/89 06/22/16 16:54 37.0 90 16 151/96 Meds Administered Last 24 Hrs: Meds Administered (Past 24Hrs) Medications (Trade) Dose Ordered Sig/Roman Route Start Time Stop Time Status Last Admin Dose Admin Escitalopram Oxalate (Lexapro Tab) 10 mg DAILY PO 06/23/16 09:00 07/23/16 08:59 06/23/16 08:58 10 MG Problem Qualifiers (1) Depression: Depression Type: major depressive disorder Major depression recurrence: recurrent Major depression episode severity: severe Psychotic features: without psychotic features
[2016-06-23] MEDS ORDERED: ATR25 PO (10:48)
[2016-06-23] MEDS ORDERED: ATV5 PO (10:48)
[2016-06-24 07:00] VITALS: BP_SYST 112; BP_SYST 136; BP_DIAS 76; BP_DIAS 92; PULSE 63; PULSE 64; TEMP 36.9
[2016-06-24] MEDS: MULTIVITAMIN TAB PO SCH (09:05)
[2016-06-24] MEDS: ESCITALOPRAM OXALATE 10 MG TAB PO SCH (09:05)
[2016-06-24] MEDS ORDERED: hydrOXYzine HCL 25 MG TAB PO PRN (13:15)
--- NOTE | 2016-06-24 13:22 | Psychiatric Progress Notes ---
Progress Note Date of Service Jun 24, 2016. Interval History Mirna Lo is a 45-year-old female who lives in [place] with her , has a history of depression, and presented to the ER via EMS after she overdosed on hydroxyzine while intoxicated in a suicide attempt. She was seen in consultation while in the ICU, and was then medically cleared and admitted voluntarily to the U on 06/22/16. Chief Complaint "She just told me you guys want me to stay 2 to 4 more days". Subjective Patient was seen & assessed interval progress reviewed with Treatment Team. Staff report she is going to groups and talking about her stressors and suicide attempt. Today she is tearful and upset about her LOS, saying "when I signed myself in, I thought I was signing in for 3 days." She says she recognizes she may need more time, saying "I can't fuck it up again," referring to her suicide attempt. She says she has learned a lot here about mental illness. She has a meeting with her today. She continues to express guilt that she hurt her family members by her suicide attempt. She reports poor sleep and would like a prn. Hydroxyzine 25mg has been helpful for her in the past. She denies ever abusing or misusing it prior to her overdose. Sleep Information Total Hours of Sleep: 5.50 Meal Information Percent of Breakfast Consumed: 100 Percent of Lunch Consumed: 90 Percent of Dinner Consumed: 75 Mental Status Exam During interview pt is: alert and oriented, cooperative Eye contact is: good Motor behavior is: steady gait & station, no abnormal motor movements Speech: normal in rate, rhythm & volume Affect: mood congruent, tearful (at times, appropriately) Mood is: other ("okay") Thought process: goal directed Thought content: reality based without delusions Suicidal thought are: denied Homicidal thoughts are: denied Hallucinations: denies auditory, denies visual Cognition: memory grossly intact, attention grossly intact, language grossly intact Intelligence estimated to be: average Insight: fair Judgement: fair Medication Trials (1) Past Psych Meds citalopram alprazolam hydroxyzine - overdosed on it in suicide attempt lorazepam - started by PCP after son's as prn Last Edited By: Kierra Nelson on Jun 23, 2016 10:40 Impression 45 y/o MWF with depression and alcohol abuse who attempted suicide by hydroxyzine overdose while intoxicated, one week after son committed suicide. She would benefit from medication adjustment to target mood and anxiety, interventions regarding her alcohol abuse, safety planning including , and referral for outpatient mental health services. Continued Inpatient Care High risk for suicide if discharge prematurely. Plan (1) Depression 2/ - resume home dose of escitalopram 10mg daily - encourage group participation - refer for outpatient psychiatry and therapy 2 - continue escitalopram 10mg and observe response, consider dose increase if depressive or anxiety symptoms continue/worsen 28 - add hydroxyzine 25mg qhs prn for sleep at patient's request. She denies abusing or misusing this medication prior to her overdose. Although this was initially stopped due to her overdose, it is safer than alterative sleep medications. (2) Suicide attempt 2 - hydroxyzine and lorazepam held on admission to medical floor. - attend groups and work on coping skills and safety plan - family meeting with to work on safety plan - he should lock up all meds and guns in the home, and hold her meds and dispense daily until she has stabilized. 06/24 - family meeting with today (3) Alcohol abuse 2/ - Abusing alcohol for years. Educated about the risks of ongoing alcohol use , including development of tolerance, addiction, legal consequences, cognitive problems, worsening mood and anxiety, and increased risk of suicide. She agrees it is a problem, and is willing to abstain. If unable to do so on her own, recommend outpatient substance abuse treatment. 2 - Avoid controlled substances. Lorazepam discontinued on medical floor. Will get JARAD to coordinate care with PCP, Dr. Shannon Gilliam. Discharge / Aftercare Planning Psychiatrist: Name: alysha Therapist: Name: alysha Feller Seam Operator: Name: alysha Visit Code E&M Code: 13234 Risk Factors Assessment : Yes /single/: No Higher / Fall in social status: No Access to guns: Yes Health problems: No Mental Health Diagnoses: Yes Substance use disorders: Yes Previous attempt: No Previous psychiatric stay: No Hopelessness: No Smoker: No Protective Factors Assessment Congregation beliefs: Yes : Yes Responsible for young children: No Employed: No Stable relationships: Yes Supportive family: Yes Data Vital Signs Last 24 Hrs: Date Time Temp Pulse Resp B/P Pulse Ox O2 Delivery O2 Flow Rate FiO2 06/24/16 07:00 36.9 63 15 112/76 64 136/92 Meds Administered Last 24 Hrs: Meds Administered (Past 24Hrs) Medications (Trade) Dose Ordered Sig/Roman Route Start Time Stop Time Status Last Admin Dose Admin Acetaminophen (Tylenol Tab) 650 mg Q4H PRN PO 06/22/16 16:30 07/22/16 16:29 06/24/16 12:11 650 MG Escitalopram Oxalate (Lexapro Tab) 10 mg DAILY PO 06/23/16 09:00 07/23/16 08:59 06/24/16 09:05 10 MG Multivitamins (Multivitamin Tab) 1 tab DAILY PO 06/24/16 09:00 07/24/16 08:59 06/24/16 09:05 1 TAB Problem Qualifiers (1) Depression: Depression Type: major depressive disorder Major depression recurrence: recurrent Major depression episode severity: severe Psychotic features: without psychotic features
[2016-06-25 06:43] VITALS: BP_SYST 144; BP_SYST 147; BP_DIAS 81; BP_DIAS 82; PULSE 55; PULSE 67; TEMP 36.5
[2016-06-25] MEDS: MULTIVITAMIN TAB PO SCH (08:15)
[2016-06-25] MEDS: ESCITALOPRAM OXALATE 10 MG TAB PO SCH (08:15)
--- NOTE | 2016-06-25 10:01 | Psychiatric Progress Notes ---
Progress Note Date of Service Jun 25, 2016. Interval History Mirna Lo is a 45-year-old female who lives in [place] with her , has a history of depression, and presented to the ER via EMS after she overdosed on hydroxyzine while intoxicated in a suicide attempt. She was seen in consultation while in the ICU, and was then medically cleared and admitted voluntarily to the U on 06/22/16. Chief Complaint "I am okay with being here". Subjective Patient was seen & assessed interval progress reviewed with nursing. Patient continues to process son's suicide. She at times is overwhelmed with the emotions and prefers to focus on "positive" organ donation. She has developed a safety plan; securing meds and guns. She is agreeable to therapy at [facility]. Discussed having a psychiatric prescriber and that this is closer monitoring than typical when getting medication for depression from PCP. She understands and is willing to do this for a period of time. She denies suicidal thoughts, intention or plan today. No longer upset about being here longer than she had anticipated. Had vistaril for sleep and woke up earlier than she would have liked but generally slept well 6.5 hours. Review of Systems negative Sleep Information Total Hours of Sleep: 6.50 Meal Information Percent of Breakfast Consumed: 100 Percent of Lunch Consumed: 0 Percent of Dinner Consumed: 100 Mental Status Exam During interview pt is: alert and oriented, cooperative Appearance: disheveled (hair in unkempt ponytail) Eye contact is: good Motor behavior is: steady gait & station, no abnormal motor movements Speech: normal in rate, rhythm & volume Affect: mood congruent, tearful (at times, appropriately) Mood is: other ("okay") Thought process: goal directed Thought content: reality based without delusions Suicidal thought are: denied Homicidal thoughts are: denied Hallucinations: denies auditory, denies visual Cognition: memory grossly intact, attention grossly intact, language grossly intact Intelligence estimated to be: average Insight: fair Judgement: fair Medication Trials (1) Past Psych Meds citalopram alprazolam hydroxyzine - overdosed on it in suicide attempt lorazepam - started by PCP after son's as prn Last Edited By: Kierra Nelson on Jun 23, 2016 10:40 Impression 45 y/o MWF with depression and alcohol abuse who attempted suicide by hydroxyzine overdose while intoxicated, one week after son committed suicide. She would benefit from medication adjustment to target mood and anxiety, interventions regarding her alcohol abuse, safety planning including , and referral for outpatient mental health services. Continued Inpatient Care High risk for suicide if discharge prematurely. Plan (1) Depression 06/22 - resume home dose of escitalopram 10mg daily - encourage group participation - refer for outpatient psychiatry and therapy 06/23 - continue escitalopram 10mg and observe response, consider dose increase if depressive or anxiety symptoms continue/worsen 06/24 - add hydroxyzine 25mg qhs prn for sleep at patient's request. She denies abusing or misusing this medication prior to her overdose. Although this was initially stopped due to her overdose, it is safer than alterative sleep medications. 06/25 - hydroxyzine at bedtime. She did sleep better. (2) Suicide attempt 06/22 - hydroxyzine and lorazepam held on admission to medical floor. - attend groups and work on coping skills and safety plan - family meeting with to work on safety plan - he should lock up all meds and guns in the home, and hold her meds and dispense daily until she has stabilized. 06/24 - family meeting with today 06/25 - safety plan developed with at meeting yesterday. He will secure meds and guns (already removed from home per patient report). (3) Alcohol abuse 06/22 - Abusing alcohol for years. Educated about the risks of ongoing alcohol use , including development of tolerance, addiction, legal consequences, cognitive problems, worsening mood and anxiety, and increased risk of suicide. She agrees it is a problem, and is willing to abstain. If unable to do so on her own, recommend outpatient substance abuse treatment. 06/23 - Avoid controlled substances. Lorazepam discontinued on medical floor. Will get JARAD to coordinate care with PCP, Dr. Shannon Gilliam. 06/25 Patient verbalizes plan and commitment to abstain from using alcohol after discharge. Discharge / Aftercare Planning Psychiatrist: Name: alysha Therapist: Name: alysha Layer Off: Name: alysha Visit Code E&M Code: 26848 Risk Factors Assessment : Yes /single/: No Higher / Fall in social status: No Access to guns: Yes Health problems: No Mental Health Diagnoses: Yes Substance use disorders: Yes Previous attempt: No Previous psychiatric stay: No Hopelessness: No Smoker: No Protective Factors Assessment Temple beliefs: Yes : Yes Responsible for young children: No Employed: No Stable relationships: Yes Supportive family: Yes Data Vital Signs Last 24 Hrs: Date Time Temp Pulse Resp B/P Pulse Ox O2 Delivery O2 Flow Rate FiO2 06/25/16 06:43 36.5 55 16 147/81 67 144/82 Meds Administered Last 24 Hrs: Current Inpatient Medications Medications (Trade) Dose Ordered Sig/Roman Route Start Time Stop Time Status Last Admin Dose Admin Acetaminophen (Tylenol Tab) 650 mg Q4H PRN PO 06/22/16 16:30 07/22/16 16:29 06/24/16 12:11 650 MG Bismuth Subsalicylate (Kaopectate Liqd) 15 ml PRN PRN PO 06/22/16 16:30 07/22/16 16:29 Al Hydroxide/Mg Hydroxide (Maalox Susp) 30 ml Q4H PRN PO 06/22/16 16:30 07/22/16 16:29 Magnesium Hydroxide (Milk Of Magnesia Susp) 30 ml DAILY PRN PO 06/22/16 16:30 07/22/16 16:29 Sodium Chloride ([place] Nasal [place]) PRN PRN NA 06/22/16 16:30 07/22/16 16:29 Escitalopram Oxalate (Lexapro Tab) 10 mg DAILY PO 06/23/16 09:00 07/23/16 08:59 06/25/16 08:15 10 MG Multivitamins (Multivitamin Tab) 1 tab DAILY PO 06/24/16 09:00 07/24/16 08:59 06/25/16 08:15 1 TAB Hydroxyzine HCl (Vistaril Tab) 25 mg HS PRN PO 06/24/16 13:15 07/24/16 13:14 06/24/16 21:51 25 MG Problem Qualifiers (1) Depression: Depression Type: major depressive disorder Major depression recurrence: recurrent Major depression episode severity: severe Psychotic features: without psychotic features
[2016-06-26 06:57] VITALS: BP_SYST 137; BP_SYST 150; BP_DIAS 82; BP_DIAS 93; PULSE 67; PULSE 77; TEMP 37
[2016-06-26] MEDS: ESCITALOPRAM OXALATE 10 MG TAB PO SCH (09:13)
[2016-06-26] MEDS: MULTIVITAMIN TAB PO SCH (09:13)
--- NOTE | 2016-06-26 10:28 | Discharge Instructions ---
Discharge Information Report Includes Report will include the: Discharge Instructions & Summary Admission Admission Date / Time: Jun 22, 2016 at 16:15 Reason for Admission: Depression Discharge Discharge Diagnosis / Problem: Major Depression, recurrent, severe without psychosis Condition at Discharge: Good Discharge Goals Goal(s): Improve function, Improve disease control, Learn about illness, Therapeutic intervention Activity Recommendations Activity Limitations: resume your previous activity . Instructions / Follow-Up Instructions / Follow-Up . SPECIAL CARE INSTRUCTIONS: 1. Follow through with your scheduled aftercare appointments. If unable to keep an appointment, please call to reschedule. 2. Take your medication only as prescribed. Medication should not be changed or stopped without the approval of your doctor. In the event of worsening symptoms or concerns about side effects, contact your doctor immediately. 3. Utilize new healthy coping skills, anger management skills, and stress management skills learned during your hospitalization. Journal feelings and process them with a support person. Identify stressors or situations that may result in relapse, deterioration or inappropriate behaviors and develop a plan to deal with those issues. 4. If your coping skills are ineffective and you are in crisis, contact your outpatient providers for direction. If unable to reach your providers, please call the CAN HELP LINE AT or go to the closest Emergency Room. 5. Avoid alcohol and un-prescribed drugs. 6. You have been provided with the Mental Health Advance Directives Pamphlet for your review. AFTERCARE APPOINTMENTS: * Please call your insurance company prior to your scheduled appointment to confirm your aftercare providers are covered. Take your insurance information to your appointments. . Discharge / Aftercare Planning Psychiatrist: Name: Melissa--intake with Wilmer @ [place] office Date of Appointment: Jul 03, 2016 Time of Appointment: 929 Appointment Notes: arrive 15 min prior to appt--bring insurance card Therapist: Name Of Therapist: see above Ironer Hand: Name: alysha Home Health Services: Home Health Services: none Other: Name of Appointment #1: Melissa Date of Appointment #1: Jul 03, 2016 Time of Appointment #1: 929 . Follow-Up Care Plan for Follow-Up Care: see above Current Hospital Diet Patient's current hospital diet: Regular Diet Discharge Diet Recommended Diet: Regular Diet Procedures Procedures Performed: No Pending Studies Pending Studies at Discharge: No Medical Emergencies . Who to Call and When: Medical Emergencies: For questions or emergencies related to your hospital stay, please contact the Inpatient Behavioral Health Unit at [phone]. A contract recruiter is on-call 07/12 for the Behavioral Health Unit for emergencies At any time you feel your situation is an emergency, you may also call 911 immediately. . Non-Emergent Contact Non-Emergency issues call your: Primary Care Provider Advance Directives Existing Advance Directive: No Do You Have an Existing Mental: No Existing Living Will: No Existing Power of Convolute Tube Winder: No Advance Directives Info Given: To Pt/S.O. Discharge Summary Admission HPI Per the Admitting provider: See H and P Admission Exam Per the Admitting provider: See H and P Hospital Course (1) Depression 06/22 - resume home dose of escitalopram 10mg daily - encourage group participation - refer for outpatient psychiatry and therapy 06/23 - continue escitalopram 10mg and observe response, consider dose increase if depressive or anxiety symptoms continue/worsen 06/24 - add hydroxyzine 25mg qhs prn for sleep at patient's request. She denies abusing or misusing this medication prior to her overdose. Although this was initially stopped due to her overdose, it is safer than alterative sleep medications. 2 - hydroxyzine at bedtime. She did sleep better. (2) Suicide attempt 06/22 - hydroxyzine and lorazepam held on admission to medical floor. - attend groups and work on coping skills and safety plan - family meeting with to work on safety plan - he should lock up all meds and guns in the home, and hold her meds and dispense daily until she has stabilized. 06/24 - family meeting with today 06/25 - safety plan developed with at meeting yesterday. He will secure meds and guns (already removed from home per patient report). (3) Alcohol abuse 2 - Abusing alcohol for years. Educated about the risks of ongoing alcohol use , including development of tolerance, addiction, legal consequences, cognitive problems, worsening mood and anxiety, and increased risk of suicide. She agrees it is a problem, and is willing to abstain. If unable to do so on her own, recommend outpatient substance abuse treatment. 06/23 - Avoid controlled substances. Lorazepam discontinued on medical floor. Will get JARAD to coordinate care with PCP, Dr. Shannon Gilliam. 06/25 Patient verbalizes plan and commitment to abstain from using alcohol after discharge. Risk Factors Assessment : Yes /single/: No Higher / Fall in social status: No Access to guns: Yes Health problems: No Mental Health Diagnoses: Yes Substance use disorders: Yes Previous attempt: No Previous psychiatric stay: No Hopelessness: No Smoker: No Protective Factors Assessment Catholic beliefs: Yes : Yes Responsible for young children: No Employed: No Stable relationships: Yes Supportive family: Yes Absence of risk factors above: Yes (Patient very engaged in treatment while here. She verbalized gaining coping skills and insight during her stay. Patient' s risk factors mitigated by developing safety plan, family meeting with who has removed all the guns from the home and secured them in a different location to which the patient has no access. He has removed all medications from the home. Patient has an intake at [facility]] in one week. She understands the risks associated with alcohol use and is commited to abstaining. She is denying any thoughts/intention or plan to harm herself or anyone else. She is willing to continue treatment as an outpatient and so discharge is orderd by Dr. Betsy Blanchard.) Day of Discharge Assessment Hospital Course: During the patient's 5 day stay she has processed the events leading up to hospitalization. She has spent time talking about her son and tended to focus on his organ donation but has come understanding that the grief process is just beginning. She has worked the gain additional insight and coping skills. The patient was actively engaged in treatment during her 5 day stay. She received group and individual therapy. She was restarted on Lexapro 10 mg which has worked well for her mood prior to her son's suicide. She declined titration at this time and will discuss with outpatient provider if feels she needs an increase. She took an overdose on Vistaril and did use this medication as a prn here however she did sleep well last night without medication before bed and prefers try going without this medication when she goes home. Day of Discharge Assessment: Today the patient is carrying a small urn with contains a portion of her son's ashes. She is comforted by holding this. She describes her mood as "excited." She verbalizes that she is no longer feeling overwhelmed by all that needs to be taken care of after her son's . She will take time to care for herself and has hired an real estate attorney to sort out the complicated estate issues arising from son's and the of his father last year. She continues to focus on the organ donation as her son's positive contribution to others but is realistic in her understanding about the painful grieving process that will be ongoing for her. She is not going to the [facility] service that others have planned tomorrow and her is supportive of this. She is committed to not using alcohol and recognizes the role that this played in her impulsive suicide attempt. She is seated in a chair for interview holding a small urn. Motor behavior unremarkable. Appropriately dressed and groomed. She is alert and oriented. Describes her mood as "excited. Affect is normal. Speech normal rate, rhythm and volume. Suicidal or homicidal ideation is denied and patient is able to contract for safety. Thoughts are organized and goal directed. Insight and judgment are adequate and improved over admission. Laboratory Refer to printed laboratory reports Total Time Total Time Spent (min): Greater than 30 minutes Total Time Included: examination of the patient, discharge planning, medication reconciliation Tobacco Cessation at Discharge FDA approved Prescription: non-smoker Problem Qualifiers (1) Depression: Depression Type: major depressive disorder Major depression recurrence: recurrent Major depression episode severity: severe Psychotic features: without psychotic features
== END 2016-06-26 11:47 | disposition home or self-care (01) | DRG 885 ==
LOC: C.MHU 16:15
PROVIDERS: ADMIT Psychiatry & Neurology Psychiatry; ATTEND Psychiatry & Neurology Psychiatry
DX: F33.2 Major depressive disorder, recurrent severe without psychotic features (principal); F10.10 Alcohol abuse, uncomplicated; T14.91 Suicide attempt; T43.592A Poisoning by other antipsychotics and neuroleptics, intentional self-harm, initial encounter; F12.90 Cannabis use, unspecified, uncomplicated; Z87.891 Personal history of nicotine dependence; Z79.899 Other long term (current) drug therapy; X58.XXXA Exposure to other specified factors, initial encounter

== ENCOUNTER → 2016-07-16 | Outpatient (CLI) | payer OTHER ==
[~2016-07-16] MED LIST changes: -DOCU-94 PO; -ESCI10TA17 PO; -HYDR-3126 PO; -LORA-741 PO; +LXP10 PO; -MULT-506 PO; +MULTTAB58 PO; -NICO14DI9 TOP; -POLY335019 PO; -VALA500T60 PO
--- NOTE | 2016-07-16 13:26 | MAMMOGRAPHY REPORT ---
BILATERAL DIGITAL DIAGNOSTIC MAMMOGRAM AND TARGETED LEFT ULTRASOUND: 07/16/2016 CLINICAL HISTORY: Callback from screening mammogram for bilateral calcifications. TECHNIQUE: Spot magnification bilateral cc and ML views were obtained. COMPARISON: Comparison is made to exam dated: 03/31/2016 mammogram - [facility]. Also outside prior mammograms dated 02/28/2014, 01/17/2015. BREAST COMPOSITION: The tissue of both breasts is extremely dense, which lowers the sensitivity of mammography. FINDINGS: Spot magnification views of the right breast demonstrate a small 3 mm cluster of faint ca lcifications in the right 12:00 breast. The calcifications are likely stable compared to the 2014 a 2013 exams and are likely more conspicuous due to differences in mammographic technique between t he current and prior exams. Given the probable stability, the calcifications are probably benign. Other scattered benign-appearing calcifications are seen in the right breast on the magnified views, similar which demonstrate layering and are consistent with benign milk of calcium. Spot magnification views of the left breast demonstrate an oval partially circumscribed and partiall y obscured 2.3 cm mass in the left upper inner quadrant, with associated internal punctate calcifica tions. The calcifications appear increased compared to prior exams. Other scattered benign-appeari ng calcifications are seen within the left breast on the magnified views. Targeted ultrasound was performed of the area of the mammographic mass with associated calcification s. In the left breast at 11:30 periareolar region, there is an oval circumscribed solid hypoechoic parallel mass which measures 1.9 x 0.8 x 1.8 cm. Multiple echogenic foci are seen within the mass, consistent with the calcifications seen mammographically. Given the solid appearance on ultrasound and given the increasing internal calcifications, the mass is indeterminate and ultrasound-guided co re needle biopsy is recommended for further evaluation. Multiple cysts were seen in the adjacent br east. IMPRESSION: ACR BI-RADS CATEGORY 4: SUSPICIOUS, TARGETED ULTRASOUND ACR BI-RADS CATEGORY 4: SUSPICI OUS 1. Hypoechoic solid 1.9 cm mass in the left breast at 11:30, with associated internal punctate calc ifications. Given the solid appearance on ultrasound and given the increasing calcifications mammog raphically, the mass is indeterminate and ultrasound-guided core needle biopsy is recommended for fu rther evaluation. 2. Small cluster of calcifications in the right 12:00 breast is likely stable compared to the prior 2015 and 2014 exams and is probably benign. Pending benign pathology of the left breast mass, joao mmend diagnostic mammograms of the right breast in 6 months to confirm stability on spot magnificati on views. A phone call was made to the physician's office to confirm faxed results were received. The patient has been verbally notified of the results. She tentatively scheduled the biopsy before leaving the department. Approximately 10% of breast cancers are not detected with mammography. A negative mammographic repor t should not delay biopsy if a clinically suggestive mass is present. Debra Zuniga M.D. ah/:07/16/2016 12:12:56 Deaf/Hard Of Hearing Specialist: Pili FAIRCHILD(R)(M), [facility] letter sent: Abnormal 4/5 BI-RADS Code: ACR BI-RADS Category 4: Suspicious Ultrasound BI-RADS: ACR BI-RADS Category 4: Suspic ious
== END | disposition home or self-care (01) ==
LOC: C.MAMM 10:46
PROVIDERS: ATTEND Family Medicine
DX: R92.1 Mammographic calcification found on diagnostic imaging of breast (principal); N63 Unspecified lump in breast

== ENCOUNTER → 2016-07-23 | Outpatient (CLI) | payer OTHER ==
--- NOTE | 2016-07-23 10:20 | Discharge Instructions ---
Discharge Instructions Procedure Procedure Date: Jul 23, 2016. Reason for visit: Left Mass. Discharge Discharge Date: Jul 23, 2016. Discharge Diagnosis: status post breast biopsy Instructions Activity Recommendations: Additional Limitations (see below) Return to School/Work: no limitations Recommended Home Diet: No Limitations Provider Instructions: ACTIVITY RECOMMENDATIONS: * No lifting, pushing, pulling or exercising the affected side for three days. RETURN TO SCHOOL/WORK: * You may return to work/school after the procedure, but do not perform any strenuous activities for 24 to 48 hours. MEDICATIONS: * Tylenol (two 325 mg) every four to six hours if needed for mild pain (if not allergic to Tylenol). DIET: * Resume previous diet. SPECIAL CARE INSTRUCTIONS: * Keep biopsy site dry for 24 hours. May shower after 24 hours, but do not soak (bathe) incision. * May remove Tegaderm (plastic patch) tomorrow AFTER showering. * Leave the steri-strips on for one week. Allow the steri-strips to fall off by themselves. If not off after one week, you may remove them. You may place a Bandaid crosswise over the strips, if desired. * Apply ice 10 minutes on and 10 minutes off as needed. * Wear a bra at bedtime to sleep more comfortably for 2-3 days. * Your referring physician should have the results after approximately 5 to 7 business days. * Call for unusual bleeding, fever, drainage, etc or if you have any questions call during normal business hours or after hours call Dr Zuniga, . FOLLOW UP VISIT: Follow-up with Referring Physician as scheduled. Allergies Coded Allergies: No Known Allergies (Unverified , 06/22/16) Davidson Sigala Recommendations: Call your doctor if: * Temperature above 101 degrees * Pain not relieved by pain medicine ordered * There is increased drainage or redness from any incision * You have any unanswered questions or concerns. Your Doctors Instructions noted above were prepared by provider Debra Zuniga. Patient Signature Section: Patient Instructions Signature Page Mirna Lo Patient (or Guardian) Signature/Date: I have read and understand the instructions given to me by my caregivers. Caregiver/RN/Doctor Signature/Date: The above-named patient and/or guardian has received patient instructions on this date. + Original Patient Signature Page (only) stays with chart. Please make copy for patient.
--- NOTE | 2016-07-23 13:17 | MAMMOGRAPHY REPORT ---
UNILATERAL LEFT DIGITAL DIAGNOSTIC MAMMOGRAM: 07/23/2016 CLINICAL HISTORY: Status post ultrasound-guided biopsy of the left 11:30 breast mass. TECHNIQUE: Postprocedural left CC and ML views were obtained. COMPARISON: Comparison is made to exams dated: 07/16/2016 mammogram, 03/31/2016 mammogram, and 07/17/19 17 ultrasound - [facility]. BREAST COMPOSITION: The tissue of the left breast is extremely dense, which lowers the sensitivity of mammography. FINDINGS: A new biopsy marker clip is seen at the site of the biopsied mass and associated calcific ations in the left upper inner quadrant. No significant postbiopsy hematoma is seen. IMPRESSION: POST PROCEDURE IMAGING FOR MARKER PLACEMENT New biopsy clip status post ultrasound guided biopsy of the left 11:30 breast mass. Pathology resul ts are pending. Approximately 10% of breast cancers are not detected with mammography. A negative mammographic repor t should not delay biopsy if a clinically suggestive mass is present. Debra Zuniga M.D. ah/:07/23/2016 10:33:11 Associate Marketing Manager: Lyudmila FAIRCHILD(J Carlos)(M), [facility] BI-RADS Code: Post Procedure Imaging For Marker Placement
--- NOTE | 2016-07-23 13:17 | MAMMOGRAPHY REPORT ---
ULTRASOUND GUIDED BIOPSY LEFT BREAST: 07/23/2016 CLINICAL HISTORY: Left 11:00 breast mass with associated calcifications. PATIENT CONSENT: The procedure, risks and benefits were discussed with the patient and informed writ ten consent was obtained. A timeout was performed immediately prior to the procedure. PROCEDURE DESCRIPTION: With ultrasound guidance, aseptic technique, and lidocaine as the local anest hetic (1% lidocaine to anesthetize the skin and 1% lidocaine with epinephrine to anesthetize the camille per tissues), the mass of concern in the left 11:30 breast was sampled 3 times with a 14-gauge Achie ve biopsy needle. Immediately thereafter, with ultrasound guidance, aseptic technique, and lidocaine as the local anesthetic, a metallic localizer clip was placed centrally in the mass. Direct pressu re was applied to the site immediately post procedure and hemostasis was achieved. Postprocedure un ilateral mammograms were performed to confirm placement of the clip in the expected location of the breast mass. The patient tolerated the procedure without complication. She was given wound care ins tructions. The specimens were sent to pathology for analysis. COMPARISON: Comparison is made to exams dated: 07/16/2016 ultrasound, 07/16/2016 mammogram, and 016 mammogram - [facility]. IMPRESSION: ULTRASOUND GUIDED BIOPSY Ultrasound-guided core needle biopsy of the left 11:30 breast mass with associated calcifications, w ith clip placement. The patient will receive pathology results from her referring provider. Debra Zuniga M.D. ah/:07/23/2016 10:23:41 Sausage Stringer: Lyudmila JARVIS)(Vi), [facility]
== END | disposition home or self-care (01) ==
LOC: C.MAMM 09:36
PROVIDERS: ATTEND Family Medicine
DX: N63 Unspecified lump in breast (principal); N60.92 Unspecified benign mammary dysplasia of left breast

== ENCOUNTER → 2017-02-12 | Outpatient (CLI) | payer OTHER ==
[2017-02-12 11:46] LABS: BASO % 0.6 %; BASO ABS # 0.04 K/uL (0-0.2); COMPLETE YES; EOS % 4.9 %; HEMATOCRIT 41.9 % (37-47); IG% 0.3 %; LYMPH ABS # 2.01 K/uL (1.2-3.4); MEAN CELL VOLUME 93.3 fL (80-100); MEAN CORPUSCULAR HGB CONC 33.2 g/dl (32-36); MEAN PLATELET VOLUME 9.5 fL (7.4-10.4); NEUT % 51.2 %; PLATELET COUNT 283 K/uL (130-400); RED BLOOD COUNT 4.49 M/uL (4.2-5.4); WHITE BLOOD COUNT 6.93 K/uL (4.8-10.8)
[2017-02-12 11:59] LABS: BLOOD UREA NITROGEN 12 mg/dl (7-18); BUN/CREATININE RATIO 18.9 (10-20); CALCIUM 8.7 mg/dl (8.5-10.1); CARBON DIOXIDE 27 mmol/L (21-32); CHLORIDE 106 mmol/L (98-107); CREATININE 0.62 mg/dl (0.60-1.20); GLUCOSE 94 mg/dl (70-99); POTASSIUM 3.8 mmol/L (3.5-5.1); SODIUM 138 mmol/L (136-145)
[2017-02-12 12:10] LABS: CHOLESTEROL 185 mg/dl (0-200); CHOLESTEROL/HDL RATIO 2.1; HDL CHOLESTEROL 90 mg/dl; LDL CHOLESTEROL CALCULATED 81 mg/dl; THYROID STIMULATING HORMONE 0.832 uIu/ml (0.300-4.500); TRIGLYCERIDES 72 mg/dl (0-150); VERY LOW DENSITY LIPOPROT CALC 14 mg/dl
== END | disposition home or self-care (01) ==
LOC: C.LABPBG 08:06
PROVIDERS: ATTEND Family Medicine
DX: Z13.220 Encounter for screening for lipoid disorders (principal); R03.0 Elevated blood-pressure reading, without diagnosis of hypertension

== ENCOUNTER → 2017-12-15 | Outpatient (CLI) | payer OTHER ==
--- NOTE | 2017-12-16 14:57 | MAMMOGRAPHY REPORT ---
BILATERAL DIGITAL SCREENING MAMMOGRAM TOMOSYNTHESIS WITH CAD: 12/15/2017 TECHNIQUE: The study was acquired using full field digital technology and interpreted from soft copy. Breast tomosynthesis in addition to standard 2D mammography was performed. Current study was also ev aluated with a Computer Aided Detection (CAD) system. COMPARISON: Comparison is made to exams dated: 07/23/2016 mammogram, 07/23/2016 ultrasound biopsy, 017 ultrasound, 07/16/2016 mammogram, and 03/31/2016 mammogram - [facility]. BREAST COMPOSITION: The tissue of both breasts is extremely dense, which lowers the sensitivity of ma mmography. FINDINGS: No suspicious masses, calcifications, or areas of architectural distortion are noted in either breast . There has been no significant interval change compared to prior exams. A mass with associated calc ifications and a biopsy microclip within the left medial anterior breast is stable compared to the pr ior exam. Other scattered bilateral benign-appearing calcifications are not significantly changed. IMPRESSION: ACR BI-RADS CATEGORY 2: BENIGN There is no mammographic evidence of malignancy. A 1 year screening mammogram is recommended.( 019) The patient will receive written notification of the results. Some breast cancers are not detected with mammography. A negative mammographic report should not vincent y biopsy if a clinically suggestive mass is present. Debra Zuniga M.D. ah/:12/15/2017 15:25:41 Lapping Machine Tender: Lyudmila Rich RT(R)(M), [facility] letter sent: Normal 1/2 BI-RADS Code: ACR BI-RADS Category 2: Benign
== END | disposition home or self-care (01) ==
LOC: C.MAMM 08:54
PROVIDERS: ATTEND Family Medicine
DX: Z12.31 Encounter for screening mammogram for malignant neoplasm of breast (principal)

== ENCOUNTER 2020-10-15 21:23 | Observation (INO) ==
[2020-10-15] MEDS ORDERED: NITROGLYCERIN SL 0.4 MG/TAB TAB SL STA (23:06)
[2020-10-15] MEDS ORDERED: ASPIRIN 81 MG CHEW PO STA (23:06)
--- NOTE | 2020-10-15 23:13 | Emergency Department Note ---
Impression & Plan Left-sided chest pain, Hypertension ED Provider Note Name: MANNIE PEDROZA Age: 50 Sex: F Arrives Via: Walk-In Informant: Patient, ED Provider: Les López MD Chief Complaint: Chest Pain Impression: Left Sided Chest Pain Hypertension Medical Decision Makin yr old female with history HTN, HLP, Smoking and extensive family CVA history arrives with left chest pain to shoulder associated with significant HTN. Given ASA 324mg PO and SLNTG with resolution of chest pain and htn improved. EKG looks OK, CXR normal and trop wnl at this time. Dimer is normal and I feel PE and dissection are low likelihood. She is breathing comfortably and is stable. She is agreeable to hospitalization. Prior Medical Record and Triage/Nursing Notes reviewed by Me Additional history obtained from chart Differentials:Cardiac ischemia, aortic dissection, pulmonary embolism, pneumothorax, pneumonia, pericarditis, myocarditis, esophageal rupture, GERD, cholecystitis, pancreatitis, musculoskeletal, as well as other pathologies. Vital Signs: reviewed and remarkable for HTN Interventions: Saline lock, slntg, asa 324mg po Labs:Reviewed and remarkable for no significant abnormalities Imaging:X ray results are stated below per my interpretation: Chest: 1 view: No infiltrate, no effusion, normal cardiac border. EKG:Per My Interpretation: Indication Chest Pain: NSR 70 bpm, qtc 473. No Ectopy. No Ischemia. Compared to EKG 06/22/16, no significant changes. Cardiac/Tele Monitoring: Cardiac Monitoring: An Order was placed for continuous cardiac monitoring. The monitor shows a rate of 70 with a normal sinus rhythm. Consults:Dr Tahir NERI Hospitalist Plan: Disposition:Hospitalization. Condition: Good History of Present Illness:50 yr old female arrives for evaluation of chest pain. Patient notes she was working outside this morning on the house when she started noting chest discomfort. Pain left sided and dull. Associated with nausea, dry heaves, lightheadedness and near-syncope. She notes she has pain radiating to bilateral shoulder and to upper back. No tearing/sharp pain. Mildly worse with deep breath and with exertion. Rest seems to make symptoms better. Denies leg swelling, calf pain, headache, syncope, abdominal pain, nor other symptoms. No fevers, chills, nor other symptoms. She took a Vistaril tab earlier without improvement. notes symptoms have been worsening throughout the night. Patient denies cardiac history. She does have a history of Hypertension, Dyslipidemia, Smoking, and anxiety/depression. She has no h istory of coronary artery disease nor previous cardiac work-up. Unknown parental history, however she notes brother has history HTN and previous stroke. Patient has 10+ year smoking history. ROS: See above HPI for pertinent positives & negatives. A total of 10 systems re viewed and were otherwise negative. Past Medical History:HTN, HLP, Anxiety/Depression Past Surgical History:Hysterectomy Family History:Unknown Parental history. Brother HTN and CVA Social History:Smoker, lives with Home Medications:Atorvastatin, Bupropion, HCTZ, Vistaril, Losartan, Sertraline Allergies:NKDA Vitals:Blood Pressure: 200/100, Pulse 69, RR 19, T 36.3C, O2 98% on RA Physical Exam: GENERAL: Patient is anxious appearing and in mild distress. EYES: No scleral icterus, unremarkable pupils. ENT: Mucous membranes moist, no nasal congestion. NECK: No masses appreciated, nomeningismus, trachea is midline. RESPIRATORY: No dyspnea. Clear to auscultation and equal bilaterally. No wheeze, no rhonchi. CARDIOVASCULAR: Regular rate and rhythm.No murmurs, rubs, gallops appreciated. GASTROINTESTINAL: Abdomen soft, non-tender, no peritonitis.Bowel sounds po sitive.No masses appreciated. BACK: No midline tenderness, no CVA tenderness EXTREMITIES: Normal motion all extremities, no cyanosis, no edema. NEUROLOGIC: Alert and oriented, no acute motor or sensory deficits, no focal weakness, cranial nerves grossly intact. SKIN: No rash, no jaundice, no diaphoresis. PSYCH: Appropriate GCS: 15 ED Course: Times/Reassessments: Resolution of chest pain with SLNTG and feeling well. No further return of cp while in ED. Agreeable to hospitalization Les López MD Past Med/Surg History Medical History (Updated 10/16/20 @ 03:08 by Les López MD) Anxiety Benign essential hypertension Depression Dyslipidemia History of kidney stones Insomnia Recurrent cold sores Surgical History History of hysterectomy with unilateral oophorectomy right removed History of left breast biopsy benign History of tooth extraction Family History Mother COPD (chronic obstructive pulmonary disease) Hypertension Brother Hypertension Stroke Other No family history of adverse response to anesthesia Social History Smoking Status: Current every day smoker Age Started Using Tobacco: 38; packs per day: 0.5; Cigarettes Per Day: 5; Second Hand Exposure: No; Do You Dip or Chew Tobacco: No; Tobacco Cessation Education Requested by Patient: No Hx Alcohol Use: Yes Alcohol type: hard liquor Alcohol Intake Frequency Comment: 2 rum and coke daily Hx Substance Use: No Preferred Language: Maori Communication Ability: Effective Visual Impairment: No Limitations Hearing Ability: Normal Vending Machine Operator Required: No Beliefs That Will Affect Care: None marital status: Current Living Situation: Spouse and Family Current Living Situation Comment: Lives with and 2 grandkids current occupational status: unemployed Other Information That Helps Us Care for You: No Feels Safe at Home: Yes Dental Care, Regularly: No Physical Activity Frequency: Daily Physical Activity Frequency Comment: physical work Seatbelt Use: always Sunscreen Use: Yes Assistive Devices: None Allergies Allergies Allergy/AdvReac Type Severity Reaction Status Date / Time No Known Allergies Allergy Verified 10/15/20 23:15 Home Meds Home Medications Medication Instructions Recorded Confirmed multivitamin 1 tab PO QAM 02/15/19 10/15/20 hydroxyzine HCl 50 mg tablet 25 mg PO DAILY PRN #90 tab 02/22/19 10/15/20 Previous Rx's Medication Instructions Recorded bupropion HCl 150 mg tablet,12 hr 150 mg PO BID #60 ea 01/18/20 sustained-release hydrochlorothiazide 12.5 mg tablet 12.5 mg PO QAM #90 tab 03/14/20 sertraline 100 mg tablet 100 mg PO QAM #90 tab 03/28/20 losartan 50 mg tablet 50 mg PO QAM #90 tab 05/02/20 atorvastatin 10 mg tablet 10 mg PO QAM #90 tab 06/24/20 Results & Data (ED) Vital Signs Vital Signs - 24 hr 10/15/20 21:24 10/15/20 23:22 10/15/20 23:58 Temperature 36.3 C L Temperature Source Temporal Artery Scan Pulse Rate 69 Pulse Rate [Right Finger] 67 71 Respiratory Rate 19 19 16 Respiratory Effort / Characteristics Non-Labored Respiratory Depth Normal Respiratory Pattern Regular Blood Pressure 200/100 H Blood Pressure [Left Arm] 173/92 H 162/84 H Blood Pressure Mean 133 Blood Pressure Mean [Left Arm] 119 110 Blood Pressure Position [Left Arm] Pulse Oximetry 98 97 97 Oxygen Delivery Method Room Air Room Air Sepsis Recent Fever Within 48 Hours No Sepsis New/Unexplained Change in Mental Status N/A Sepsis Action Taken by Nursing No Action Required 10/16/20 01:31 10/16/20 02:19 10/16/20 02:21 Temperature Temperature Source Pulse Rate Pulse Rate [Right Finger] 62 72 73 Respiratory Rate 16 16 19 Respiratory Effort / Characteristics Respiratory Depth Respiratory Pattern Blood Pressure Blood Pressure [Left Arm] 156/95 H 144/97 H 144/97 H Blood Pressure Mean Blood Pressure Mean [Left Arm] 115 112 112 Blood Pressure Position [Left Arm] Lying Pulse Oximetry 97 95 95 Oxygen Delivery Method Room Air Sepsis Recent Fever Within 48 Hours Sepsis New/Unexplained Change in Mental Status Sepsis Action Taken by Nursing 10/16/20 02:53 Temperature Temperature Source Pulse Rate Pulse Rate [Right Finger] 69 Respiratory Rate 19 Respiratory Effort / Characteristics Respiratory Depth Respiratory Pattern Blood Pressure Blood Pressure [Left Arm] 161/87 H Blood Pressure Mean Blood Pressure Mean [Left Arm] 111 Blood Pressure Position [Left Arm] Pulse Oximetry 95 Oxygen Delivery Method Room Air Sepsis Recent Fever Within 48 Hours Sepsis New/Unexplained Change in Mental Status Sepsis Action Taken by Nursing Laboratory Data Result diagrams: 10/15/20 23:20 10/15/20 23:20 Lab Results 10/15/20 10/15/20 10/15/20 Range/Units 23:20 23:20 23:20 WBC 10.20 (4.8-10.8) K/uL RBC 4.26 (4.2-5.4) M/uL Hgb 13.7 (12.0-16.0) g/dL Hct 39.5 (37-47) % MCV 92.7 (80-100) fL MCH 32.2 (25-34) pg MCHC 34.7 (32-36) g/dL RDW Std Deviation 43.7 (36.4-46.3) fL RDW Coeff of Bessie 13.0 (11.5-14.5) % Plt Count 237 (130-400) K/uL MPV 8.9 (7.4-10.4) fL Immature Gran % (Auto) 0.1 % Neut % (Auto) 70.2 % Lymph % (Auto) 17.7 % [place]lier % (Auto) 9.1 % Eos % (Auto) 2.6 % Baso % (Auto) 0.3 % Neut # (Auto) 7.15 H (1.4-6.5) K/uL Lymph # (Auto) 1.81 (1.2-3.4) K/uL [place] # (Auto) 0.93 H (0.11-0.59) K/uL Eos # (Auto) 0.27 (0-0.5) K/uL Baso # (Auto) 0.03 (0-0.2) K/uL Immature Gran # (Auto) 0.01 (0.00-0.02) K/uL D-Dimer 260 (0-500) ug/L FEU Sodium 139 (136-145) mmol/L Potassium 3.4 L (3.5-5.1) mmol/L Chloride 106 (98-107) mmol/L Carbon Dioxide 24 (21-32) mmol/L Anion Gap 8.0 (3-11) BUN 9 (7-18) mg/dl Creatinine 0.62 (0.6-1.2) mg/dl Est Cr Clr Drug Dosing 99.1 ml/min Est GFR ( Amer) 120.2 ml/min Est GFR (Non-Af Amer) 103.7 ml/min BUN/Creatinine Ratio 14.9 (10-20) Glucose 109 H (70-99) mg/dl Calcium 9.3 (8.5-10.1) mg/dl Total Bilirubin 0.5 (0.2-1) mg/dl Direct Bilirubin 0.2 (0-0.2) mg/dl AST 42 H (15-37) U/L ALT 75 (12-78) U/L Alkaline Phosphatase 69 (45-117) U/L Troponin I < 0.015 (0-0.045) ng/ml Total Protein 7.5 (6.4-8.2) gm/dl Albumin 4.2 (3.4-5.0) gm/dl Lipase 84 (73-393) U/L COVID-19 Eval Order SARS-CoV-2 (PCR) (Negative) 10/16/20 10/16/20 Range/Units 01:23 01:23 WBC (4.8-10.8) K/uL RBC (4.2-5.4) M/uL Hgb (12.0-16.0) g/dL Hct (37-47) % MCV (80-100) fL MCH (25-34) pg MCHC (32-36) g/dL RDW Std Deviation (36.4-46.3) fL RDW Coeff of Bessie (11.5-14.5) % Plt Count (130-400) K/uL MPV (7.4-10.4) fL Immature Gran % (Auto) % Neut % (Auto) % Lymph % (Auto) % [place] % (Auto) % Eos % (Auto) % Baso % (Auto) % Neut # (Auto) (1.4-6.5) K/uL Lymph # (Auto) (1.2-3.4) K/uL [place] # (Auto) (0.11-0.59) K/uL Eos # (Auto) (0-0.5) K/uL Baso # (Auto) (0-0.2) K/uL Immature Gran # (Auto) (0.00-0.02) K/uL D-Dimer (0-500) ug/L FEU Sodium (136-145) mmol/L Potassium (3.5-5.1) mmol/L Chloride (98-107) mmol/L Carbon Dioxide (21-32) mmol/L Anion Gap (3-11) BUN (7-18) mg/dl Creatinine (0.6-1.2) mg/dl Est Cr Clr Drug Dosing ml/min Est GFR ( Amer) ml/min Est GFR (Non-Af Amer) ml/min BUN/Creatinine Ratio (10-20) Glucose (70-99) mg/dl Calcium (8.5-10.1) mg/dl Total Bilirubin (0.2-1) mg/dl Direct Bilirubin (0-0.2) mg/dl AST (15-37) U/L ALT (12-78) U/L Alkaline Phosphatase (45-117) U/L Troponin I (0-0.045) ng/ml Total Protein (6.4-8.2) gm/dl Albumin (3.4-5.0) gm/dl Lipase (73-393) U/L COVID-19 Eval Order Covid19 at [facility] SARS-CoV-2 (PCR) NEGATIVE (Negative) Administered Medications Discontinued Medications Aspirin (Aspirin 81 Mg Chew) 324 mg PO NOW STA Stop: 10/15/20 23:07 Last Admin: 10/15/20 23:23 Dose: 324 mg Documented by: [id number] Lorazepam (Ativan) 0.5 mg in 1 mls @ 1 mls/min IV NOW STA Stop: 10/16/20 00:32 Last Admin: 10/16/20 00:55 Dose: 1 mls/min Documented by: [id number] Nitroglycerin (Nitroglycerin Sl 0.4 Mg/Tab Tab) 0.4 mg SL NOW STA Stop: 10/15/20 23:07 Last Admin: 10/15/20 23:23 Dose: 0.4 mg Documented by: [id number] Discharge Plan Visit Data Chief Complaint: Anxiety Stated Complaint: ANXIETY ATTACK, CHEST PAINS, VOMITING ED Provider: Les López Discharge Problem: Left-sided chest pain, Hypertension Forms Stand Alone Forms: [facility] [place], Suicide Prevention Resources Prescriptions Prescriptions: No Action bupropion HCl [Wellbutrin SR] 150 mg tablet sustained-release 12 hr 150 mg PO BID Qty: 60 RF: 5 sertraline 100 mg tablet 100 mg PO QAM Qty: 90 RF: 1 losartan 50 mg tablet 50 mg PO QAM Qty: 90 RF: 3 atorvastatin 10 mg tablet 10 mg PO QAM Qty: 90 RF: 1 hydrochlorothiazide 12.5 mg tablet 12.5 mg PO QAM Qty: 90 RF: 3 multivitamin tablet 1 tab PO QAM RF: 0 hydroxyzine HCl 50 mg tablet 25 mg PO DAILY PRN (Reason: Anxiety) Qty: 90 RF: 0 Discharge Problem: Hypertension Qualifiers: Hypertension type: essential hypertension Qualified Code(s): I10 - Essential (primary) hypertension
[2020-10-15 23:28] LABS: Basophils # (auto) 0.03 K/uL (0-0.2); Basophils % (auto) 0.3 %; Eosinophils # (auto) 0.27 K/uL (0-0.5); Eosinophils % (auto) 2.6 %; Hematocrit (blood only) 39.5 % (37-47); Hemoglobin 13.7 g/dL (12.0-16.0); Immature Granulocytes # (auto) 0.01 K/uL (0.00-0.02); Immature Granulocytes % (auto) 0.1 %; Lymphocytes # (auto) 1.81 K/uL (1.2-3.4); Lymphocytes % (auto) 17.7 %; Mean Corpuscular Hemoglobin 32.2 pg (25-34); Mean Corpuscular Hgb Conc 34.7 g/dL (32-36); Mean Corpuscular Volume 92.7 fL (80-100); Mean Platelet Volume 8.9 fL (7.4-10.4); Monocytes # (auto) 0.93 K/uL (0.11-0.59); Monocytes % (auto) 9.1 %; Neutrophils # (auto) 7.15 K/uL (1.4-6.5); Neutrophils % (auto) 70.2 %; Platelet Count 237 K/uL (130-400); RDW Standard Deviation 43.7 fL (36.4-46.3); Red Blood Count 4.26 M/uL (4.2-5.4)
[2020-10-15 23:38] LABS: D Dimer 260 ug/L FEU (0-500)
[2020-10-15 23:49] LABS: Alanine Aminotransferase 75 U/L (12-78); Albumin Level 4.2 gm/dl (3.4-5.0); Aspartate Aminotransferase 42 U/L (15-37); BUN Creatinine Ratio 14.9 (10-20); Bilirubin Direct 0.2 mg/dl (0-0.2); Blood Urea Nitrogen 9 mg/dl (7-18); Calcium 9.3 mg/dl (8.5-10.1); Carbon Dioxide 24 mmol/L (21-32); Chloride 106 mmol/L (98-107); Creatinine Clr Calc Pharmacy 99.1 ml/min; Est GFR (African American) 120.2 ml/min; Est GFR (Non-African American) 103.7 ml/min; Glucose 109 mg/dl (70-99); Lipase 84 U/L (73-393); Potassium 3.4 mmol/L (3.5-5.1); Sodium 139 mmol/L (136-145)
[2020-10-15 23:54] LABS: Alkaline Phosphatase 69 U/L (45-117); Bilirubin,Total 0.5 mg/dl (0.2-1); Total Protein 7.5 gm/dl (6.4-8.2); Troponin I < 0.015 ng/ml (0-0.045)
[2020-10-16] MEDS ORDERED: LORazepam 0.5 MG/1 ML VIAL IV STA (00:31)
--- NOTE | 2020-10-16 01:03 | History & Physical Report ---
Date of Service October 16, 2020 Assessment & Plan (1) Chest pain: 50yo C female with history of HTN, HLP, tobacco/cigar use presenting with left sided chest discomfort that started yesterday around 11:00. Patient with no known history of CAD, troponin is unremarkable, EKG with no acute ischemic changes at this point. Exam is unremarkable. Ddx to include ACS vs musculoskeletal vs anxiety. -Observation to medical with telemetry -Trend troponin -Check A1C and Lipid panel for risk stratification -Stress test in AM Present on Admission?: Yes (2) Anxiety: Patient with underlying anxiety as well as panic attacks. -Continue Sertraline 100mg po daily -Continue Bupropion 150mg po BID -Hydroxyzine PRN Present on Admission?: Yes (3) Benign essential hypertension: Blood pressure elevated upon arrival, now improved - 162/84 -Continue HCTZ 12.5mg po daily -Continue Losartan 50mg po daily -Continue to monitor BP Present on Admission?: Yes (4) Dyslipidemia: Chronic -Continue Atorvastatin 10mg po daily F/E/N - Heplock. Check Mg. K repletion with KCl 40mEq x 1, NPO for now for stress test in AM Ppx - Low risk for DVT Code - Full per discussion with patient Dispo - Observation to medical with telemetry Present on Admission?: Yes History of Present Illness Chief Complaint: chest pain Primary Care Provider: Shannon Gilliam DO Mirna Lo is a pleasant 50yo female with history of HTN, HLP presenting with left sided chest discomfort. Patient cleaned her house today - ran the vacuum, moved some wood in her yard. Around 11:00 she was outside using the hose when she developed left sided chest pressure, 5/10 in severity. She felt warm, diaphoretic and nauseated. Pain radiated to between her shoulder blades. Pain was non-exertional, non-pleuritic but is made worse by laying down. She had several episodes throughout the day which prompted her to seek medical care. She was given Nitroglycerine which improved her discomfort. Now only with vague pain on the left side. Patient with no personal history of CAD, arrhythmia or CHF. She has never had a stress test or cardiac catheterization. Patient is physically active in her home with no prior history of exertional symptoms. No additional complaints at this time. ER Course: Ativan, Nitro, ASA Allergies Allergy/AdvReac Type Severity Reaction Status Date / Time No Known Allergies Allergy Verified 10/15/20 23:15 Home Medications Medication Instructions Recorded Confirmed Type multivitamin 1 tab PO QAM 02/15/19 10/15/20 History hydroxyzine HCl 50 mg tablet 25 mg PO DAILY PRN #90 tab 02/22/19 10/15/20 History bupropion HCl 150 mg tablet,12 hr 150 mg PO BID #60 ea 01/18/20 10/15/20 Rx sustained-release hydrochlorothiazide 12.5 mg tablet 12.5 mg PO QAM #90 tab 03/14/20 10/15/20 Rx sertraline 100 mg tablet 100 mg PO QAM #90 tab 03/28/20 10/15/20 Rx losartan 50 mg tablet 50 mg PO QAM #90 tab 05/02/20 10/15/20 Rx atorvastatin 10 mg tablet 10 mg PO QAM #90 tab 06/24/20 10/15/20 Rx Past Med/Surg History Medical History (Updated 10/16/20 @ 01:16 by Lauren Haro DO) Anxiety Benign essential hypertension Depression Dyslipidemia History of kidney stones Insomnia Recurrent cold sores Surgical History History of hysterectomy with unilateral oophorectomy right removed History of left breast biopsy benign History of tooth extraction Family History Mother COPD (chronic obstructive pulmonary disease) Hypertension Brother Hypertension Stroke Other No family history of adverse response to anesthesia Social History Smoking Status: Never smoker Age Started Using Tobacco: 38; packs per day: 0.5; Second Hand Exposure: Yes (parent smoked); Hx Alcohol Use: Yes Alcohol type: hard liquor Alcohol Intake Frequency Comment: 2 rum and coke daily Hx Substance Use: No Preferred Language: Moldovan Communication Ability: Effective Visual Impairment: No Limitations Hearing Ability: Normal Cage Clerk Required: No Beliefs That Will Affect Care: None marital status: Current Living Situation: Spouse and Family Current Living Situation Comment: Lives with and 2 grandkids current occupational status: unemployed Feels Safe at Home: Yes Dental Care, Regularly: No Physical Activity Frequency: Daily Physical Activity Frequency Comment: physical work Seatbelt Use: always Sunscreen Use: Yes Assistive Devices: None Review of Systems Review of Systems: All systems reviewed & are unremarkable except as noted in HPI & below Physical Exam Physical Exam: General: patient resting comfortably, NAD, anxious but non- toxic in appearance, AA&O x 4 Skin: warm, dry, intact, no rashes or lesions HEENT: NC/AT, PERRL, EOMI, anicteric sclera, conjunctiva without injection, external ear normal to inspection and nontender, nares patent, moist mucus membranes, dentition intact, no oropharyngeal lesions, neck supple, trachea midline, no LAD, no thyromegaly, no JVD Heart: +S1/S2, regular, no m/r/g, no reproducible chest wall pain Lungs: equal air entry bilaterally, no rales/rhonchi/wheezes Abd: +BS, soft, NT/ND, no masses/organomegaly/ascites, no epigastric discomfort Ext: warm, 2+ pulses in UE/LE bilaterally, no clubbing/cyanosis or edema Neuro: nonfocal, patient AA&O x 4, speech intact, no facial droop, moving all extremities on command with equal strength 5/5 Results & Data Results & Data ([facility]) Vital Signs (Past 12 Hours) Vital Signs Temp Pulse Pulse Resp BP BP Pulse Ox 10/15/20 23:58 71 16 162/84 H 97 10/15/20 23:22 67 19 173/92 H 97 10/15/20 21:24 36.3 C L 69 19 200/100 H 98 Laboratory Results Laboratory Results WBC 10.20 K/uL (4.8-10.8) 10/15/20 23:20 RBC 4.26 M/uL (4.2-5.4) 10/15/20 23:20 Hgb 13.7 g/dL (12.0-16.0) 10/15/20 23:20 Hct 39.5 % (37-47) 10/15/20 23:20 MCV 92.7 fL (80-100) 10/15/20 23:20 MCH 32.2 pg (25-34) 10/15/20 23:20 MCHC 34.7 g/dL (32-36) 10/15/20 23:20 RDW Std Deviation 43.7 fL (36.4-46.3) 10/15/20 23:20 RDW Coeff of Bessie 13.0 % (11.5-14.5) 10/15/20 23:20 Plt Count 237 K/uL (130-400) 10/15/20 23:20 MPV 8.9 fL (7.4-10.4) 10/15/20 23:20 Immature Gran % (Auto) 0.1 % 10/15/20 23:20 Neut % (Auto) 70.2 % 10/15/20 23:20 Lymph % (Auto) 17.7 % 10/15/20 23:20 [place] % (Auto) 9.1 % 10/15/20 23:20 Eos % (Auto) 2.6 % 10/15/20 23:20 Baso % (Auto) 0.3 % 10/15/20 23:20 Neut # (Auto) 7.15 K/uL (1.4-6.5) H 10/15/20 23:20 Lymph # (Auto) 1.81 K/uL (1.2-3.4) 10/15/20 23:20 [place] # (Auto) 0.93 K/uL (0.11-0.59) H 10/15/20 23:20 Eos # (Auto) 0.27 K/uL (0-0.5) 10/15/20 23:20 Baso # (Auto) 0.03 K/uL (0-0.2) 10/15/20 23:20 Immature Gran # (Auto) 0.01 K/uL (0.00-0.02) 10/15/20 23:20 D-Dimer 260 ug/L FEU (0-500) 10/15/20 23:20 Sodium 139 mmol/L (136-145) 10/15/20 23:20 Potassium 3.4 mmol/L (3.5-5.1) L 10/15/20 23:20 Chloride 106 mmol/L (98-107) 10/15/20 23:20 Carbon Dioxide 24 mmol/L (21-32) 10/15/20 23:20 Anion Gap 8.0 (3-11) 10/15/20 23:20 BUN 9 mg/dl (7-18) 10/15/20 23:20 Creatinine 0.62 mg/dl (0.6-1.2) 10/15/20 23:20 Est Cr Clr Drug Dosing 99.1 ml/min 10/15/20 23:20 Est GFR ( Amer) 120.2 ml/min 10/15/20 23:20 Est GFR (Non-Af Amer) 103.7 ml/min 10/15/20 23:20 BUN/Creatinine Ratio 14.9 (10-20) 10/15/20 23:20 Glucose 109 mg/dl (70-99) H 10/15/20 23:20 Calcium 9.3 mg/dl (8.5-10.1) 10/15/20 23:20 Total Bilirubin 0.5 mg/dl (0.2-1) 10/15/20 23:20 Direct Bilirubin 0.2 mg/dl (0-0.2) 10/15/20 23:20 AST 42 U/L (15-37) H 10/15/20 23:20 ALT 75 U/L (12-78) 10/15/20 23:20 Alkaline Phosphatase 69 U/L (45-117) 10/15/20 23:20 Troponin I < 0.015 ng/ml (0-0.045) 10/15/20 23:20 Total Protein 7.5 gm/dl (6.4-8.2) 10/15/20 23:20 Albumin 4.2 gm/dl (3.4-5.0) 10/15/20 23:20 Lipase 84 U/L (73-393) 10/15/20 23:20 Diagnostic Findings CXR - awaiting formal read - per my interpretation, several well circumscribed calcified lesions noted in right lung. No prior study for comparison. ECG Additional Comments: EKG with NSR at 70bpm, normal axis, SN=324, DKP=445, FMu=218, no acute ischemic changes PG Care Time/CCT Total # of Minutes Spent Total Time Spent with Patient: Total time spent is greater than 50% in coordination of care (as documented) at patient's floor/unit and/or counseling patient: Coding Level of Care Code 94541 OBS Care - Level 3 Diagnoses Chest pain R07.9 Chest pain type: unspecified Anxiety F41.9 Benign essential hypertension I10 Dyslipidemia E78.5 (1) Chest pain Chest pain type: unspecified Qualified Code(s): R07.9 - Chest pain, unspecified
--- NOTE | 2020-10-16 01:48 | Billing Data ---
Date of Service October 16, 2020 Coding Level of Care Code 08300 Initial Inpt Care Lvl 2
[2020-10-16] MEDS ORDERED: ACETAMINOPHEN 325 MG TAB PO PRN (04:00)
[2020-10-16] MEDS ORDERED: hydrOXYzine HCl 25 MG TAB PO PRN (04:00)
[2020-10-16] MEDS ORDERED: ONDANSETRON INJ 2 MG/ML 2 ML VIAL IV PRN (04:00)
[2020-10-16] MEDS ORDERED: POTASSIUM CHLORIDE CRTAB 20 MEQ TABCR PO STA (04:00)
[2020-10-16] MEDS ORDERED: MoRPHine SULFATE 2 MG/ML CARP IV PRN (04:00)
[2020-10-16] MEDS ORDERED: NITROGLYCERIN SL 0.4 MG/TAB TAB SL PRN (04:00)
[2020-10-16 04:24] LABS: Magnesium 1.7 mg/dl (1.8-2.4)
[2020-10-16 07:38] LABS: Chol HDL Ratio 2; Cholesterol 214 mg/dl (0-200); HDL Cholesterol 89 mg/dl; LDL Cholesterol Calculated 86 mg/dl; Triglycerides 194 mg/dl (0-150); VLDL Cholesterol 39 mg/dl
--- NOTE | 2020-10-16 08:41 | XRay Report ---
XR chest 1V portable CLINICAL HISTORY: left sided chest pain COMPARISON STUDY: No previous studies for comparison. FINDINGS: The cardiac and mediastinal contours are normal. There is no evidence of focal pulmonary co nsolidation. There is no evidence of failure. No pleural effusions are visualized.[Increased markings within the right infrahilar region, likely represent a vascular summation. There is a 1 cm right mid lung zone nodule versus vascular summation. A follow-up PA and lateral chest x-ray is recommended. IMPRESSION: 1. Increased right infrahilar markings, likely representing a vascular summation 2. 1 cm right midlung zone nodule versus vascular summation. A follow-up PA and lateral chest x-ray i s recommended. ACT 112: Positive. There are findings on this exam that require communication between the performing entity and the patient following Patient Test Result Information Act ([place] Act 112) guidelines. Electronically signed by: Srinivas Watkins M.D. 10/16/2020 8:40 AM
--- NOTE | 2020-10-16 08:53 | Electrocardiogram Report ---
Test Reason : Blood Pressure : / mmHG Vent. Rate : 070 BPM Atrial Rate : 070 BPM P-R Int : 174 ms QRS Dur : 102 ms QT Int : 438 ms P-R-T Axes : 062 063 040 degrees QTc Int : 473 ms Normal sinus rhythm Left atrial enlargement Borderline ECG When compared with ECG of 22-JUN-2016 08:00, Nonspecific T wave abnormality, improved in Inferior leads Nonspecific T wave abnormality, improved in Anterolateral leads Confirmed by Micky Norris ([id number]) on 10/16/2020 8:52:56 AM Referred By: REFERRED SELF Confirmed By:Micky Norris
[2020-10-16] MEDS ORDERED: LOSARTAN POTASSIUM 50 MG TAB PO SCH (09:00)
[2020-10-16] MEDS ORDERED: buPROPion SR 150 MG TABCR PO SCH (09:00)
[2020-10-16] MEDS ORDERED: SERTRALINE HCL 100 MG TABLET PO SCH (09:00)
[2020-10-16] MEDS ORDERED: ATORVASTATIN 10 MG TAB PO SCH (09:00)
[2020-10-16] MEDS ORDERED: hydroCHLOROthiazide 25 MG TAB PO SCH (09:00)
[2020-10-16 09:02] LABS: Estimated Average Glucose 114 mg/dl; Hemoglobin A1C 5.6 % (4.5-5.6)
--- NOTE | 2020-10-16 11:05 | XCELERA ---
[id number]
--- NOTE | 2020-10-16 12:12 | XRay Report ---
XR chest 2V PA/lateral HISTORY: 50 years-old Female f/u right lung nodule vs summation artifact follow-up study in a patien t with possible right-sided lung nodule COMPARISON: Radiograph 10/15/2020 TECHNIQUE: PA and lateral views of the chest FINDINGS: Cardiac mediastinal and hilar silhouettes are within normal limits. No pneumothorax, pleural effusion , airspace consolidation or overt pulmonary edema. The previously questioned 1 cm right midlung nodul e is not definitively seen. The bones appear grossly intact. IMPRESSION: 1. No acute process. 2. No definite pulmonary nodule identified. ACT 112: Negative or not required by law. The above report was generated using voice recognition software. It may contain grammatical, syntax o r spelling errors. Electronically signed by: Juan Jose Kumari M.D. 10/16/2020 12:11 PM
--- NOTE | 2020-10-16 14:26 | Discharge Summary ---
Date of Service October 16, 2020 Admission HPI Per Admitting Provider Mirna Lo is a pleasant 50yo female with history of HTN, HLP presenting with left sided chest discomfort. Patient cleaned her house today - ran the vacuum, moved some wood in her yard. Around 11:00 she was outside using the hose when she developed left sided chest pressure, 5/10 in severity. She felt warm, diaphoretic and nauseated. Pain radiated to between her shoulder blades. Pain was non-exertional, non-pleuritic but is made worse by laying down. She had several episodes throughout the day which prompted her to seek medical care. She was given Nitroglycerine which improved her discomfort. Now only with vague pain on the left side. Patient with no personal history of CAD, arrhythmia or CHF. She has never had a stress test or cardiac catheterization. Patient is physically active in her home with no prior history of exertional symptoms. No additional complaints at this time. ER Course: Ativan, Nitro, ASA Principal Diagnosis Chest pain, noncardiac Discharge Exam Constitutional WD/WN, vitals as above Eyes + anicteric sclerae Neck trachea midline, no thyromegaly Respiratory normal respiratory effort, lungs clear to auscultation Cardiovascular RRR, no murmur, no edema (No tenderness to palpation over chest wall) Extremities: no calf tenderness Chest (Breasts) Chest: normal inspection of chest Gastrointestinal (Abdomen) normal bowel sounds, soft, nontender, no hepatosplenomegaly Musculoskeletal Extremities: extremities normal to inspection; no cyanosis and no clubbing Skin no rashes, warm and dry Neurologic moves all extremities and awake; no focal motor deficits Psychiatric A+Ox3, euthymic affect Lymphatic no lymphedema Discharge Data Allergies Allergy/AdvReac Type Severity Reaction Status Date / Time No Known Allergies Allergy Verified 10/15/20 23:15 Consultations 10/16/20 00:31 ED Decision to Admit Stat Procedures Performed Stress echocardiogram-negative Ordered Studies Chest X-Ray 10/15/20 23:06 XR chest 1V portable CLINICAL HISTORY: left sided chest pain COMPARISON STUDY: No previous studies for comparison. FINDINGS: The cardiac and mediastinal contours are normal. There is no evidence of focal pulmonary consolidation. There is no evidence of failure. No pleural effusions are visualized.[Increased markings within the right infrahilar region, likely represent a vascular summation. There is a 1 cm right midlung zone nodule versus vascular summation. A follow-up PA and lateral chest x-ray is recommended. IMPRESSION: 1. Increased right infrahilar markings, likely representing a vascular summation 2. 1 cm right midlung zone nodule versus vascular summation. A follow-up PA and lateral chest x-ray is recommended. ACT 112: Positive. There are findings on this exam that require communication between the performing entity and the patient following Patient Test Result Information Act ([place] Act 112) guidelines. Electronically signed by: Srinivas Watkins M.D. 10/16/2020 8:40 AM Chest X-Ray 10/16/20 09:14 XR chest 2V PA/lateral HISTORY: 50 years-old Female f/u right lung nodule vs summation artifact follow-up study in a patient with possible right-sided lung nodule COMPARISON: Radiograph 10/15/2020 TECHNIQUE: PA and lateral views of the chest FINDINGS: Cardiac mediastinal and hilar silhouettes are within normal limits. No pneumothorax, pleural effusion, airspace consolidation or overt pulmonary edema. The previously questioned 1 cm right midlung nodule is not definitively seen. The bones appear grossly intact. IMPRESSION: 1. No acute process. 2. No definite pulmonary nodule identified. ACT 112: Negative or not required by law. The above report was generated using voice recognition software. It may contain grammatical, syntax or spelling errors. Electronically signed by: Juan Jose Kumari M.D. 10/16/2020 12:11 PM Hospital Course (1) Chest pain: 50yo C female with history of HTN, HLP, tobacco/cigar use presenting with left sided chest discomfort that was coming and going for approximately 12 hours prior to presentation. Patient with no known history of CAD, troponin is unremarkable, EKG with no acute ischemic changes. She was brought in on observation on telemetry and had no events on telemetry Serial troponin was negative x3 Stress echocardiogram was negative Hemoglobin A1c was normal and lipid panel was excellent All of her pain completely resolved after admission. She does admit to excessive alcohol use through the weekend which likely contributed. She does drink 3 drinks per day of liquor and I advised her to cut down on this. This may be related to alcohol induced gastritis and reflux. Start Protonix 40 mg once daily for 2 weeks. Also counseled on cessation of cigarette smoking-she plans on follow with PCP to consider Chantix prescription (2) Anxiety: Patient with underlying anxiety as well as panic attacks. -Continue Sertraline 100mg po daily -Continue Bupropion 150mg po BID -Hydroxyzine PRN (3) Benign essential hypertension: Blood pressure elevated upon arrival, now improved -Continue HCTZ 12.5mg po daily -Continue Losartan 50mg po daily -Continue to monitor BP as an outpatient (4) Current smoker: Counseled on cessation as above (5) Dyslipidemia: Chronic -Continue Atorvastatin 10mg po daily Ppx - Low risk for DVT Code - Full per discussion with patient Dispo -stable for discharge home Total Time Total Time Spent Total Time Spent (In Minutes): 35 min Total Time Includes: Examination of the Patient, Discharge Planning and Medication Reconciliation Discharge Plan Discharge Items Patient Disposition: Home - Self-Care Reason For Visit: CHEST PAIN Discharge Diagnosis: Chest pain-noncardiac, most likely related to acid reflux Condition on Discharge: Good Activity: Resume your previous activity Non-emergency contact: Primary Care Provider Call non-emergency contact if: you have any medication questions, your symptoms worsen and your pain is not controlled Follow-up/Referrals: Shannon Gilliam, [Primary Care Provider] - (Please follow-up within 1 to 2 weeks after discharge. Patient will make her own appointment.) Diet: Regular Addtl Attending Provider Instructions: You were admitted for chest pain which turned out to not be related to your heart. You had multiple tests including blood work and a stress test that showed your heart is healthy and you did not have a heart attack. This could be related to excessive acid or inflammation of the stomach related to alcohol use. It is important that you cut down on your alcohol intake to no more than 1 drink per day. It is also recommended that you quit smoking as we discussed. Please follow-up with Dr. Gilliam in regards to a prescription for Chantix as we discussed. Please take an antacid called Protonix once daily for the next 2 weeks to see if this helps your symptoms. Pending Studies at Discharge: No Stand-Alone Forms: My [employer], Smoking Cessation Medications and DC Order Prescriptions: New pantoprazole [Protonix] 40 mg tablet,delayed release (DR/EC) 40 mg PO DAILY Qty: 14 RF: 0 Continued bupropion HCl [Wellbutrin SR] 150 mg tablet sustained-release 12 hr 150 mg PO BID Qty: 60 RF: 5 sertraline 100 mg tablet 100 mg PO QAM Qty: 90 RF: 1 losartan 50 mg tablet 50 mg PO QAM Qty: 90 RF: 3 atorvastatin 10 mg tablet 10 mg PO QAM Qty: 90 RF: 1 hydrochlorothiazide 12.5 mg tablet 12.5 mg PO QAM Qty: 90 RF: 3 multivitamin tablet 1 tab PO QAM RF: 0 hydroxyzine HCl 50 mg tablet 25 mg PO DAILY PRN (Reason: Anxiety) Qty: 90 RF: 0 Discharge Orders: Discharge Order (Routine); Ordered 10/16/20 Ordered By: Radha Snyder Admission Data Admit Date/Time: 10/16/20 01:02 Attending Provider: Radha Snyder Admit Provider: Lauren Haro Primary Care Provider: Shannon Gilliam. Other Providers: Lauren Haro Coding Level of Care Code 24817 OBS Care - Discharge Diagnoses Chest pain R07.9 Chest pain type: unspecified Anxiety F41.9 Benign essential hypertension I10 Current smoker F17.200 Dyslipidemia E78.5
== END 2020-10-16 15:03 | disposition home or self-care (01) ==
LOC: 2N 21:23 → ED 21:23 → SUATTDRO 10-16 01:02 → 2N 10-16 03:45